=== PATIENT | female | born 1940 | race Caucasian/White ===

== ENCOUNTER → 2020-05-01 08:49 | Outpatient (BNVA) | payer MEDICARE, SELFPAY | PROVIDERS: Family Provider Physician Assistant Medical; Visit Provider Internal Medicine | DX: E04.2 Nontoxic multinodular goiter (principal); E21.0 Primary hyperparathyroidism; I10 Essential (primary) hypertension | CPT/HCPCS: 99204 ==

== ENCOUNTER 2020-05-20 06:47 | Outpatient (CLI) | payer MEDICARE, SELFPAY ==
--- NOTE | 2020-05-20 08:00 | US_ITS ---
WS: [id number] INDICATION: Ultrasound-guided thyroid FNA. Thyroid nodules. TECHNIQUE: Ultrasound-guided thyroid FNA FINDINGS: The procedure including risks benefits, locations were discussed with the patient who agree d to proceed. Using sterile technique patient was prepped and draped in usual sterile fashion. Timeou t was performed. After 1% lidocaine, using ultrasound guidance, 3 passes were made into the solid lef t thyroid nodule with active aspiration. Left thyroid nodule measures 1.7 x 0.6 x 1.3 cm Next, using ultrasound guidance 3 passes were made into the cystic left lower pole thyroid cystic les ion with coarse calcifications. 25-gauge needle was utilized with active aspiration. Cystic nodule wi th calcifications measures 1.1 x 0.5 x 0.8 cm No immediate complications. Pathology was present for s lide preparation US/US biopsy thyroid [id number] IMPRESSION: Uncomplicated ultrasound-guided left thyroid FNA of a mid and left lower pole thyroid nodule
[2020-05-20 08:14] LABS: INR 1.06 (0.8-1.2)
== END 2020-05-20 06:48 | disposition home or self-care (01) ==
LOC: US 06:52
PROVIDERS: Visit Provider Internal Medicine
DX: E04.2 Nontoxic multinodular goiter (principal)
CPT/HCPCS: 10005; 10006; 36415; 85610; 88307

== ENCOUNTER 2020-06-16 11:36 | Outpatient (CLI) | payer MEDICARE, SELFPAY ==
--- NOTE | 2020-06-16 11:43 | MM_ITS ---
WS: [id number] BILATERAL DIGITAL SCREENING MAMMOGRAPHY WITH CAD CLINICAL INFORMATION: SCREENING HISTORY: Screening mammogram. No current complaints. COMPARISON: TECHNIQUE: Bilateral CC and MLO views. FINDINGS: Scattered fibroglandular densities bilaterally. No suspicious focal mass, asymmetry, calcifications, or architectural distortion. No evidence of malignancy. MM/[place] [id number] IMPRESSION: BI-RADS: 1-Negative FOLLOW UP: 1 Year Follow-up Recommend return to annual screening mammography.
== END 2020-06-16 11:37 | disposition home or self-care (01) ==
LOC: RADSHAW 11:42
PROVIDERS: PCP Physician Assistant Medical; Visit Provider Physician Assistant Medical
DX: Z12.31 Encounter for screening mammogram for malignant neoplasm of breast (principal)
CPT/HCPCS: 77067

== ENCOUNTER → 2021-02-19 13:57 | Outpatient (BNVA) | payer MEDICARE, SELFPAY | PROVIDERS: PCP Physician Assistant Medical; Referring Provider Physician Assistant Medical; Visit Provider Orthopaedic Surgery | DX: M54.5 Low back pain (principal) | CPT/HCPCS: 72110 ==

== ENCOUNTER → 2021-03-06 10:03 | Outpatient (BNVA) | payer MEDICARE, SELFPAY | PROVIDERS: PCP Physician Assistant Medical; Referring Provider Orthopaedic Surgery; Visit Provider Anesthesiology Pain Medicine | DX: G89.29 Other chronic pain (principal); M54.5 Low back pain | CPT/HCPCS: 99205 ==

== ENCOUNTER → 2021-03-09 13:35 | Outpatient (BNVA) | payer MEDICARE, SELFPAY | PROVIDERS: PCP Physician Assistant Medical; Visit Provider Anesthesiology Pain Medicine | DX: M47.816 Spondylosis without myelopathy or radiculopathy, lumbar region (principal) | CPT/HCPCS: 64493; 64494; 64495; J3490 ==

== ENCOUNTER → 2021-03-24 09:44 | Outpatient (BNVA) | payer MEDICARE, SELFPAY | PROVIDERS: PCP Physician Assistant Medical; Visit Provider Anesthesiology Pain Medicine | DX: M54.5 Low back pain (principal) | CPT/HCPCS: 99214 ==

== ENCOUNTER → 2021-04-14 14:05 | Outpatient (BNVA) | payer MEDICARE, SELFPAY | PROVIDERS: PCP Physician Assistant Medical; Referring Provider Physician Assistant Medical; Visit Provider Internal Medicine | DX: E21.0 Primary hyperparathyroidism (principal); E04.2 Nontoxic multinodular goiter; R53.83 Other fatigue; R13.10 Dysphagia, unspecified | CPT/HCPCS: 99213; 99214 ==

== ENCOUNTER → 2021-05-20 13:59 | Outpatient (BNVA) | payer MEDICARE, SELFPAY | PROVIDERS: PCP Physician Assistant Medical; Visit Provider Orthopaedic Surgery | DX: Z01.812 Encounter for preprocedural laboratory examination (principal); Z20.822 Contact with and (suspected) exposure to COVID-19 | CPT/HCPCS: 87635 ==

== ENCOUNTER → 2021-05-21 19:57 | Day surgery (SDC) | payer MEDICARE, SELFPAY | PROVIDERS: PCP Physician Assistant Medical; Visit Provider Orthopaedic Surgery | DX: Z01.818 Encounter for other preprocedural examination (principal); I10 Essential (primary) hypertension; Z01.812 Encounter for preprocedural laboratory examination; Z20.822 Contact with and (suspected) exposure to COVID-19 | CPT/HCPCS: 93005 ==

== ENCOUNTER 2021-05-27 11:22 | Observation (INO) | payer MEDICARE, SELFPAY ==
[2021-05-20 13:10] VITALS: BMI 31.4
--- NOTE | 2021-05-20 13:14 | ECG_ITS ---
[facility] Test Date: 2021-05-20 Pat Name: Sharla Arciniega Department: Room: Gender: Female Optoelectronic Technician: : 1940 Requested By: Elaine Angela Order Number: [id number] Isidoro MD: Carl Devries M.D. Measurements Intervals [place] Rate: 54 P: MI: QRS: 65 QRSD: 108 T: 72 QT: 413 QTc: 391 Interpretive Statements SINUS BRADYCARDIA WITH 2ND DEGREE AV BLOCK, MOBITZ TYPE I (WENCKEBACH) No previous ECG available for comparison Electronically Signed On 05-21-2021 17:17:55 CDT by Carl Devries M.D. [id number]
--- NOTE | 2021-05-20 13:35 | ANES.PREANE2 ---
Pre-Anesthetic Assessment Pre-Anesthetic Assessment: Height/Weight: Height 1.63 m Weight 83.007 kg Preop Diagnosis: back Proposed Procedure: Operation Date: 05/27/21 07:00 Proposed Procedures p Posterior Lumbar Interbody Fusion L4/5 L5-S1 [id number] M43.16(Not Applicable) - Joey Anguiano DO Familial anesthetic complications: none Social: Social History: No alcohol and No tobacco Exam: Pre-Anes Outpt Exam: alert, oriented x 3, clear to auscultation bilaterally and regular rate & rhythm Airway: Cervical ROM: WNL Dentition: Full CV/HEM: CV/HEM: HTN Comments: samaria Ash on EKG - no symptoms. Conferred with Dr Devries regarding any further recommendations. Recommended having patient cut bisoprolol to 5 mg a day for 2 to 3 days before surgery to help increase heart rate while still providing some beta blockade Anesthetic Plan: ASA status: 2 Anesthesia: General Risk of > 500 ml blood loss (7ml/kg in children): No PFSH Anesthesia PFSH: Medical History COPD (chronic obstructive pulmonary disease) Hypertension Surgical History Hx of cholecystectomy Family History Mother Cancer ovarian Sister Aneurysm Social History Smoking and tobacco status: never smoked Second hand smoke exposure: No Alcohol intake: never History of recent travel: No Data Anesthesia Cardiac Studies: No Data to Display
[2021-05-27] VITALS (19 sets, daily range): BP systolic 86–166; BP diastolic 30–105; PULSE 62–103; RESP 12–29; TEMP 36.3–37.1; O2SAT 91–98; BMI 30.6
--- NOTE | 2021-05-27 | XR_ITS ---
WS: [id number] Lumbar spine, C-arm fluoroscopy, 05/27/2021 Clinical Data: L5/S1 Interbody fusion with posterolateral fusion Comparison: None. Findings: Dr. Anguiano performed a posterior lumbar fusion with interbody fusion from L4 through S1. XR/XR lumbar spine 2-3V* [id number] Impression: Posterior lumbosacral fusion with interbody fusion.
--- NOTE | 2021-05-27 07:41 | PM.HP ---
Providers/Chief Complaint Primary Care Provider: Jerrell Rich Chief Complaint: Spondylolisthesis History of Present Illness Sharla Arciniega is a 80 year old female lower back pain. She states injections to Bilateral L2, 3, 4, 5, diagnostic MBBs given by Dr. García provided her with 90 minutes of relief. She states the pain to her lower legs has improved. Onset: gradual Duration: 4 months Characteristics: sharp aching at times Severity: 5/10 Location: lumbar Radiating symptoms: lower extremities, bilat hips Aggravating factors: standing or walking long distances Alleviating factors: rest, Tylenol Neuro deficits: Patient denies numbness, tingling, weakness, incontinence of bowel/bladder, saddle anesthesia. Prior tx: medial branch block - Dr. García on 03/09/21 Associated symptoms: Denies abdominal pain, chills, fever(s), nausea or vomiting Review of Systems Narrative: General ROS: negative for weight changes, fever ENT ROS: negative for nasal congestion, drainage or bleeding, sore throat, dysphagia or ear pain Eyes: PERRL Hematological and Lymphatic ROS: negative for swollen glands or abnormal bleeding Endocrine ROS: negative for polyuria/polydpsia or new changes in weight Respiratory ROS: negative for cough, shortness of breath, or wheezing Cardiovascular ROS: negative for chest pain or dyspnea on exertion Gastrointestinal ROS: negative for reflux, abdominal pain, change in bowel habits, or black or bloody stools Musculoskeletal ROS: negative for back pain, neck pain, or joint pain or swelling except for current problem Neurological ROS: negative for TIA or stoke symptoms Skin: no rashe Medications/Allergies Home Medications Medication Instructions Recorded Confirmed Last Taken Type aspirin 325 mg tablet 81 mg PO DAILY 05/01/20 05/20/21 05/19/21 20:00 History azelastine 137 mcg (0.1 %) nasal 1 spray INTRANASAL BID PRN 05/01/20 05/20/21 05/19/21 20:00 History spray aerosol bisoprolol fumarate 10 mg tablet 10 mg PO DAILY 05/01/20 05/20/21 05/20/21 07:00 History fluticasone propionate 250 1 inh INHALATION BID 05/01/20 05/20/21 05/20/21 07:00 History mcg/actuation blister powder for inhalation glucosamine-chondroitin 250 mg-200 2 tab PO TID 05/01/20 05/20/21 05/20/21 08:00 History mg tablet spironolactone 25 mg tablet 25 mg PO DAILY 05/01/20 05/20/21 05/20/21 08:00 History Allergies Allergy/AdvReac Type Severity Reaction Status Date / Time No Known Allergies Allergy Verified 05/27/21 07:33 PFSH Acute PFSH: Medical History COPD (chronic obstructive pulmonary disease) Hypertension Surgical History Hx of cholecystectomy Family History Mother Cancer ovarian Sister Aneurysm Social History Smoking and tobacco status: never smoked Second hand smoke exposure: No Alcohol intake: never History of recent travel: No Physical Exam Narrative: EXAM NARRATIVE: CONSTITUTIONAL: The patient is a normal appearing [] in no apparent distress. GENERAL: Patient in no acute distress. CARDIAC: Regular rate and rhythm. CHEST: Normal inspiratory effort, normal respiratory rate. ABDOMEN: Soft and nontender. SKIN: Clear, warm and intact. NEURO?PSYCH: The patient is alert and oriented to person, place and time. Sensorv /SILT Motor StrengthShoulder abduction C5 5/5Wrist extension C6 5/5Elbow extension C7 5/5Hand Criminal Intelligence Specialist C8 5/5Finger abduction T15/5 Radial/ Ulnar/ Median n intact LowerSensory (SILT)Motor StrengthHin flexion L2/3Ant/inner thigh 5/5Hip adduction L2/3 5/5Knee extension L4 Lat thigh, 5/5Toe dorsiflexion L5 5/5Ankle dorsiflexion L5/ [id number] flexion S1 5/5 DTRBleeps 2+Triceps 2+Brachioradialis 2+Patellar 2+Achilles 2+ MUSCULOSKELETAL: [] UPPEREXTREMITIES: The patient had full active ROM in fingers, wrist, elbow, and shoulder. The patient demonstrated ability to fully flex/extend/abduct/adduct fingers, make ok sign, cross 2nd/3rd digits, extend 1st digit fully.. Radial pulse 2+, CR<2 seconds. LOWER EXTREMITIES: Pt has full, active ROM of toes, ankle, knee, and hip. Dorsalis pedis/posterior tibialis pulses 2+, CR<2 seconds. SPINE: Skin warm, dry, intact A&P Assessment and plan (1) Spondylolisthesis at L4-L5 level: Spondylolisthesis at L4/5 and L5/S! PLIF L4-S1 Status: Acute Attestations Medical Necessity Statement*: failed conservative tx Coding Level of Care Code Acute Metal Patternmaker for [facility] Jessicad Diagnoses Spondylolisthesis at L4-L5 level M43.16
--- NOTE | 2021-05-27 07:50 | P.ANESUD_ITS ---
Pre-Anesthetic Update Pre-Anesthetic Assessment: Date of Surgery/Procedure: 05/27/21 Preop Chana gnosis: ddd Lumbar spine with Radiculopathy Proposed Procedure: Operation Date: 05/27/21 08:40 Proposed Procedures p Posterior Lumbar Interbody Fusion L4/5 L5-S1 [id number] M43.16(Not Applicable) - Joey Anguiano, DO Any changes to Pre-Anesthetic Assessment?: No Last Intake: Intake Last Liquid Date 05/26/21 Last Liquid Time 18:30 Last Solid Date 05/26/21 Last Solid Time 18:30 Vitals: Temperature 98.7 F 05/27/21 07:34 Temperature Source Temporal Artery S can 05/27/21 07:34 Pulse Rate 62 05/27/21 07:34 Respiratory Rate 16 05/27/21 07:34 Blood Pressure 166/73 05/27/21 07:34 Blood Pressure Shalonda n 104 05/27/21 07:34 Pulse Oximetry 98 05/27/21 07:34 Oxygen Delivery Me thod 05/27/21 07:34 Exam: Pre-Anes Outpt Exam: alert, oriented x 3, clear to auscultation bilaterally and regular rate & rhythm Cardiac Studies: No Data to Display
[2021-05-27] MEDS: sodium chloride 0.9% 1,000 ML 30 ML IV (07:54)
[2021-05-27 08:04] LABS: Basophils # 0.1 10^3/uL (0.0-0.1); Basophils % 0.7 %; Eosinophils # 0.4 10^3/uL (0.0-0.8); Eosinophils % 5.3 %; Hematocrit 44.6 % (37.0-47.0); Hemoglobin 14.8 g/dL (11.5-15.3); Lymphocytes # 1.5 10^3/uL (0.8-4.8); Lymphocytes % 21.8 %; Mean Corpuscular HGB Conc 33.2 g/dL (30.0-36.0); Mean Corpuscular Hemoglobin 30.2 pg (28.0-34.0); Mean Platelet Volume 12.1 fL (7.4-10.4); Monocytes # 0.6 10^3/uL (0.2-0.9); Monocytes % 9.1 %; Neutrophils # 4.36 10^3/uL (1.8-7.7); Neutrophils % 62.8 %; Nucleated Red Blood Cells % 0 %; Platelet Count 258 10^3/cmm (130-400); Red Cell Distribution Width 12.3 % (12.1-15.1); White Blood Count 6.9 10^3/uL (4.0-10.0)
[2021-05-27] MEDS: vancomycin 1,000 MG SDV 1000 MG XX (09:18)
[2021-05-27] MEDS: heparin, porcine 1,000 unit/mL INJ 10 mL 10000 UNIT IRRIGATION (09:19)
--- NOTE | 2021-05-27 11:54 | P.OP_ITS ---
Operative Report Date of procedure: May 27, 2021 Pre-op Diagnosis: Lumbar stenosis with neurogenic claudication Post-op diagnosis: same Procedure Done: 1. L5/S1 Interbody fusion with posterolateral fusion 2. Instrumentation L4-S1 3. Allograft sponge placed at L5/S1 interbody space 4. Laminectomy L4 for purpose of decompresion with Bilateral partial facetectomies 5. Laminectomy L5 for purpose of decompresion with Bilateral partial facetectomies 5. use of autograft from same incision 6. allograft 7. Bone marrow aspirate from right iliac crest 8. use of computer navigation /stereotactic for spine Surgeon: Joey Anguiano Trim Stencil Maker: Huang Yip Trim Stencil Maker: The assistant professor of spanish, Huang Yip, PAC was needed for his expertise under the microscope. He was important and necessary throughout the procedure to complete in a safe and timely manner. He assisted with patient positioning prepping and draping tissue retraction suctioning of the operative field protection of the dural sac and tissue closure Anesthesia: General Estimated blood loss (mL): 400 Condition: stable Disposition: PACU Procedure: 1. L5/S1 Interbody fusion with posterolateral fusion 2. Instrumentation L4-S1 3. Allograft sponge placed at L5/S1 interbody space 4. Laminectomy L4 for purpose of decompresion with Bilateral partial facetectomies 5. Laminectomy L5 for purpose of decompresion with Bilateral partial fa cetectomies 5. use of autograft from same incision 6. allograft 7. Bone marrow aspirate from right iliac crest 8. use of computer navigation /stereotactic for spine Patient is brought to the operative suite. After undergoing anesthesia, the patient had neuro monitoring attached. Patient was then placed in the prone position on the Matthew table. All areas of impingement were well-padded. Alicia ent was then prepped and draped in the normal sterile fashion. Skin incision was then made over the L4 to S1 . Subperiosteal dissection was made out to the transverse processes of L4 and L5 and S1. Once the exposure was complete attention was then brought toobtaining the bone marrow aspirate. The One Block Off the Grid (1BOG) bone marrow aspirate kit was used to aspirate bone marrow aspirate from the right iliac crest through a separate incision in the fascia. This was done by using the sharp probe to open up the bone. Aspiration was performed and then the blunt probe was then used to dissect down to through the bone tunnel. An aspirating well drawn back a millimeter approximately 20 cc of bone marrow aspirate was used. Admixed with the allograft and autograft bone that will be used. Next attention was brought to placing the fiducial for the computer navigation. 2 pins were placed into the iliac crest on the right. And then the fiducial was attached to these 2 pins. The information was loaded into the computer. And then the C-arm was brought in and spun around the patient. The information from the C-arm was then sent into the computer. And computer navigation was was used for placing the pedicle screws. The technique for placing the pedicle screws was to use a drill followed by the gearshift probe linked to computer navigation. Followed by the ball probe to feel the superior inferior medial lateral hillman of the pedicles. Then placement of the screws using the computer navigation. Was done at each pedicle. Screws were placed at L4 bilaterally and L5 bilaterally and S1 bilaterally. Next attention was brought to performing the laminectomy ofL5. This was done using the high-speed bur Kerrisons and curettes. Once the lamina was removed and then attention was brought to performing a partial facetectomy on the contralateral side. This was done again using the high-speed bur curettes and Kerrisons. The ligamentum flavum was taken down bilaterally from L5 to S1. Attention was then brought to the facet on the ipsilateral side. The facet was taken down. The S1 nerve was decompressed as it passed around the S1 pedicle. The laminectomy was done for purposes of decompressing the nerve as well as placement of the cage. The L5 nerve was identified as it traversed through the L5/S1 foramen. The thecal sac was identified and retracted. The L5/S1 disc base was identified. Using a knife the disc base was opened. And then sequential amada were placed. The first shaver was a 6 and the last shaver was a size 9. Using a pituitary and down going curette the endplates were scraped and disc material was removed from the space. Once adequate decompression of the disc base was felt to be had. It was realized that the patient's bone was quite osteoporotic. I did not want to put a metal cage inside of her. At this point I decided to just place to osteoamp sponges. Osteoamp sponge was packed into the anterior aspect of the disc space. An L4 laminectomy was then performed using the high-speed drill and the Kerrison rongeurs as well as curettes and rongeur. Partial facetectomies were performed bilaterally. Using the drill as well as the Kerrison rongeurs and curettes. The L4-L5 and S1 nerve roots were completely decompressed bilaterally. Attention was then brought to attaching the rods to the screws placed in the L4, L5 and S1 bilaterally. Caps were torqued into position. Locking the construct in place. Wound was copiously irrigated and then attention was brought to decorticating the facets and transverse processes laterally. Bone that was taken down from the lamina was used along with osteoamp fibers and sponges were packed into the lateral gutters along the facet joints. This was done bilaterally. The fiducials were removed along with the pins. From the right iliac crest. Wound was then closed in a layered fashion starting with the thoracolumbar fascia. 0-vicryl was used the sub cutaneous tissue was closed with 2-0 vicryl and skin with 4-0 monocryl. Glue was then used to seal the skin and a steril dressing was applied. Patient was then placed in the supine position. The endotracheal tube was removed and patient was transferred to the PACU in stable condition.
--- NOTE | 2021-05-27 11:58 | P.PCN_ITS ---
PACU note PACU note: VSS, Good respiratory effort, report to NITROCELLULOSE MAKER Post-Anesthesia Exam: awake
--- NOTE | 2021-05-27 11:58 | PM.PACU ---
PACU note PACU note: VSS, Good respiratory effort, report to MUSEUM GUIDE Post-Anesthesia Exam: awake
[2021-05-27] MEDS: HYDROmorphone 1 mg/mL INJ 1 mL 0.5 MG IVP ×4 (12:00→12:30)
[2021-05-27] MEDS: fentaNYL 50 mcg/mL INJ 2mL IVP ×2 (12:40→12:45)
[2021-05-27 13:37] LABS: Hematocrit 39.9 % (37.0-47.0)
--- NOTE | 2021-05-27 13:41 | PM.CONSULT ---
Providers/Reason For Consult Consulting Physician/Specialty*: Crow Pizano MD, hospitalist Reason for Consult*: Medical management Attending Physician: Joey Anguiano DO Primary Care Provider: Jerrell Rich History of Present Illness History of Present Illness Sharla Arciniega is a 80 year old female who underwent L5-S1 fusion today by Dr. Anguiano secondary to lumbar stenosis with neuropathy as well as chronic back pain. From my understanding patient tolerated the procedure well without significant complication. Estimated blood loss was 400. In visiting with the patient she has some discomfort, but is hopeful she can go home by tomorrow. She denies any other significant symptoms currently. Review of Systems General: Reports: 10 or more systems reviewed and unremarkable except in HPI and below Const: Denies: fever(s) Eyes: Denies: change in vision ENMT: Denies: throat pain Card: Denies: chest pain Resp: Denies: dyspnea GI: Denies: abdominal pain : Denies: flank pain Musc: Reports: back pain Skin/Breast: Denies: rash Neuro: Denies: headache(s) Psych: Denies: anxiety Endo: Denies: polyuria Yan/Lymph: Denies: easy bruising All/Imm: Denies: urticaria Meds/Allergies Home Medications and Allergies Home Medications Medication Instructions Recorded Confirmed Last Taken Type aspirin 325 mg tablet 81 mg PO DAILY 05/01/20 05/27/21 05/23/21 History azelastine 137 mcg (0.1 %) nasal 1 spray INTRANASAL BID PRN 05/01/20 05/27/21 05/26/21 History spray aerosol bisoprolol fumarate 10 mg tablet 10 mg PO DAILY 05/01/20 05/27/21 05/27/21 History fluticasone propionate 250 1 inh INHALATION BID 05/01/20 05/27/21 05/26/21 History mcg/actuation blister powder for inhalation glucosamine-chondroitin 250 mg-200 2 tab PO TID 05/01/20 05/27/21 05/26/21 History mg tablet spironolactone 25 mg tablet 25 mg PO DAILY 05/01/20 05/27/21 05/27/21 History Allergies Allergy/AdvReac Type Severity Reaction Status Date / Time No Known Allergies Allergy Verified 05/27/21 07:33 PFSH Acute PFSH: Medical History (Updated 05/27/21 @ 13:46 by Crow Pizano MD) Chronic back pain COPD (chronic obstructive pulmonary disease) DJD (degenerative joint disease) Hypertension Multiple thyroid nodules Primary hyperparathyroidism Surgical History Hx of cholecystectomy Family History Mother Cancer ovarian Sister Aneurysm Social History Smoking and tobacco status: never smoked Second hand smoke exposure: No Alcohol intake: never History of recent travel: No Vitals/I&O/Wt Last Vital Signs Temp 97.4 F L 05/27/21 11:55 Pulse 100 05/27/21 12:35 Resp 26 H 05/27/21 12:45 BP 130/105 05/27/21 12:35 Pulse Ox 95 05/27/21 12:45 05/26/21 05/27/21 05/27/21 22:59 06:59 14:59 Intake Total 260 / 260 Output Total 1000 / 1000 Balance -740 / -740 Physical Exam Narrative: EXAM NARRATIVE: General exam is a white female, no obvious distress currently. HEENT: Atraumatic normocephalic. Pupils equally round. Oropharynx clear. Neck is supple no lymphadenopathy or thyromegaly Cardiovascular regular rate and rhythm without murmur, no S3 or S4 Lungs clear Abdomen is soft. Positive bowel sounds. No obvious organomegaly Back demonstrates dressing, drain. Dressing is clean and dry Extremities no cyanosis clubbing or edema. Cap refill brisk. Skin no rash Neuro no foot drop bilaterally. Urinary Catheter Management^: F: Cath Placed During This Visit: yes Urinary Catheter Date of Insertion: 05/27/21 Urinary Catheter Time of Insertion: 08:45 Data Other Data: Other data: EKG done on May 20 demonstrated a heart rate of 54, second-degree Mobitz 1 with normal axis. A&P Assessment and plan (1) Spondylolisthesis at L4-L5 level: Directly postoperative fusion, decompression Estimated blood loss 400 cc Repeat CBC tomorrow Status: Acute (2) Hypertension: Agree with continuing home blood pressure medications of bisoprolol and Aldactone. Secondary to EKG demonstrating bradycardia, Wenckebach approximately 1 week ago we will keep an eye on heart rate here. Currently she is not bradycardic. If bradycardia does occur consider EKG or telemetry Status: Acute Qualifiers: Hypertension type: essential hypertension Qualified Code(s): I10 - Essential (primary) hypertension (3) COPD (chronic obstructive pulmonary disease): Continue fluticasone Add DuoNeb as needed No evidence of acute exacerbation Status: Acute Additional A&P Information Full code Lovenox for DVT prophylaxis Thank you for this consultation Consult Attestations Medical Necessity Statement: As per primary Time Spent in Patient Care: Greater than 35 minutes Coding Level of Care Code Acute Leak Operator Paraffin Plant for Chg Fwd Diagnoses Spondylolisthesis at L4-L5 level M43.16 Hypertension I10 Hypertension type: essential hypertension COPD (chronic obstructive pulmonary disease) J44.9
[2021-05-27] MEDS: ketorolac 30 mg/mL INJ IVP ×2 (14:06→15:49)
[2021-05-27] MEDS: ondansetron 2 mg/ML SDV 2 mL 4 MG IVP (14:06)
[2021-05-27] MEDS: lactated ringers 1,000 ML 90 ML IV (14:06)
--- NOTE | 2021-05-27 15:39 | ANE.PACU2 ---
Inpatient post-anesthesia follow up: Airway intact: Yes Vital signs: Temperature 97.5 F Pulse Rate 82 Respiratory Rate 18 Blood Pressure 110/64 Pulse Oximetry 95 Oxygen Delivery Me thod Nasal Cannula Oxygen Flow Rate 2 Fraction of Inspir ed Oxygen Hydration adequate: Yes Nausea and vomiting: No Pain level: 1 Mental status: Baseline
[2021-05-27 17:51] LABS: Hepatitis A Antibody IgM Non-Reactive (Nonreactive); Hepatitis B Core AB, Total Non-Reactive (Nonreactive); Hepatitis B Surface AB 3.5 (11.5-1000); Hepatitis B Surface Antigen Non-Reactive (Nonreactive); Hepatitis C Virus Antibody Non-Reactive (Nonreactive)
[2021-05-27] MEDS: HYDROcodone-acetaminophen 5-325 mg Tablet PO ×2 (18:36→22:40)
[2021-05-27] MEDS: docusate sodium 100 mg Capsule PO (18:36)
[2021-05-28] VITALS: BP 98/67; PULSE 80; RESP 18; TEMP 36.6; O2SAT 94
[2021-05-28] MEDS: lactated ringers 1,000 ML 90 ML IV (00:33)
[2021-05-28 02:47] LABS: Basophils % 0.1 %; Hematocrit 30.7 % (37.0-47.0); Hemoglobin 9.9 g/dL (11.5-15.3); Lymphocytes # 0.7 10^3/uL (0.8-4.8); Lymphocytes % 5.3 %; Mean Corpuscular HGB Conc 32.2 g/dL (30.0-36.0); Mean Corpuscular Hemoglobin 30.6 pg (28.0-34.0); Mean Corpuscular Volume 94.8 fl (81-99); Mean Platelet Volume 11.9 fL (7.4-10.4); Monocytes % 7.2 %; Neutrophils # 11.79 10^3/uL (1.8-7.7); Nucleated Red Blood Cells % 0 %; Platelet Count 226 10^3/cmm (130-400); Red Blood Count 3.24 10^6/uL (4.1-5.3); Red Cell Distribution Width 12.6 % (12.1-15.1); White Blood Count 13.6 10^3/uL (4.0-10.0)
[2021-05-28 03:13] LABS: Anion Gap 12.8 (5-19); Blood Urea Nitrogen 12 mg/dL (8-23); Calcium 8.8 mg/dL (8.5-10.5); Carbon Dioxide 22 mmol/L (22-29); Chloride 107 mmol/L (98-107); Glucose 152 mg/dL (65-115); Osmolality Calculated 289 mOsm/kg (285-295); Potassium 3.8 mmol/L (3.5-5.1); Sodium 138 mmol/L (136-145)
[2021-05-28 04:00] VITALS: BP 97/88; PULSE 67; RESP 16; TEMP 36.7; O2SAT 96
[2021-05-28] MEDS: ketorolac 30 mg/mL INJ IVP (04:55)
[2021-05-28] MEDS: enoxaparin 40 mg/0.4 mL Syringe SUBCUT (05:00)
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
[2021-05-28 07:57] VITALS: BP 92/56; PULSE 80; RESP 18; TEMP 36.9; O2SAT 94
--- NOTE | 2021-05-28 08:13 | PM.DCS ---
Discharge Providers Date of Admission: 05/27/21 11:22 Date of Discharge: May 28, 2021 Attending Provider at Admission: Joey Anguiano DO Attending Provider at Discharge: Joey Anguiano DO Primary Care Provider: Jerrell Rich Diagnoses at Discharge Discharge Diagnosis (1) Status post lumbar spinal fusion: Status: Acute Reason for Visit Reason for Visit: Spondylolisthesis Hospital Course Hospital Course Patient was admitted on 05/27/2021 for a posterior spine fusion. She did well her stay was uneventful. She is discharged on 05/28/2021. Physical Exam Urinary Catheter Management^: F: Cath Placed During This Visit: yes Reason for Continuing Indwelling Catheter: Required Immobilization for Trauma or Surgery or Anesthesia Urinary Catheter Date of Insertion: 05/27/21 Urinary Catheter Time of Insertion: 08:45 Discharge Data Data Completed and Pending: Completed Studies During Hospitalization Category Date Time Status XR lumbar spine 2 -3V* [id number] Routine Exams 05/27/21 Completed Pending at discharge Category Date Time Status HIV RNA (PCR) Bong nt Stat Lab 05/27/21 13:21 Received Labs from last 24 hours 05/28/21 05/28/21 05/27/21 02:10 02:10 13:21 WBC 13.6 H RBC 3.24 L Hgb 9.9 L Hct 30.7 L MCV 94.8 MCH 30.6 MCHC 32.2 RDW 12.6 Plt Count 226 MPV 11.9 H Neut % (Auto) 87.0 Lymph % (Auto) 5.3 [place] % (Auto) 7.2 Eos % (Auto) 0.0 Baso % (Auto) 0.1 Neut # (Auto) 11.79 H Lymph # (Auto) 0.7 L [place] # (Auto) 1.0 H Eos # (Auto) 0.0 Baso # (Auto) 0.0 Nucleated RBC % (a uto) 0 Nucleated RBCs # 0.0 Sodium 138 Potassium 3.8 Chloride 107 Carbon Dioxide 22 Anion Gap 12.8 BUN 12 Creatinine 0.6 GFR Calculation Not Reportable Glucose 152 H Calculated Osmolal ity 289 Calcium 8.8 Hepatitis A IgM Ab Non-reactive Hep Bs Antigen Non-reactive Hep Bs Antibody 3.5 L Hep B Core Total A b Non-reactive Hepatitis C Antibo dy Non-reactive HIV-1 RNA copies/m L HIV-1 RNA (PCR) lo g10 Blood Type Rho(D) Type Antibody Screen 05/27/21 05/27/21 05/27/21 13:21 13:21 07:42 WBC RBC Hgb 13.0 Hct 39.9 MCV MCH MCHC RDW Plt Count MPV Neut % (Auto) Lymph % (Auto) [place] % (Auto) Eos % (Auto) Baso % (Auto) Neut # (Auto) Lymph # (Auto) [place] # (Auto) Eos # (Auto) Baso # (Auto) Nucleated RBC % (a uto) Nucleated RBCs # Sodium Potassium Chloride Carbon Dioxide Anion Gap BUN Creatinine GFR Calculation Glucose Calculated Osmolal ity Calcium Hepatitis A IgM Ab Hep Bs Antigen Hep Bs Antibody Hep B Core Total A b Hepatitis C Antibo dy HIV-1 RNA copies/m L Pending HIV-1 RNA (PCR) lo g10 Pending Blood Type O Positive Rho(D) Type Positive Antibody Screen Negative Vitals: Last Vital Signs Temp 98.4 F 05/28/21 07:57 Pulse 80 05/28/21 07:57 Resp 18 05/28/21 07:57 BP 92/56 05/28/21 07:57 Pulse Ox 94 05/28/21 07:57 Discharge Plan Discharge Patient Disposition: Home Condition: Stable Prescriptions: New hydrocodone-acetaminophen 5-325 mg tablet 1 - 2 tab PO .Q4-6H Qty: 40 RF: 0 Continued bisoprolol fumarate 10 mg tablet 10 mg PO DAILY RF: 0 spironolactone 25 mg tablet 25 mg PO DAILY RF: 0 Flovent Diskus 250 mcg/actuation blister with device 1 inh INHALATION BID RF: 0 aspirin 325 mg tablet 81 mg PO DAILY RF: 0 glucosamine-chondroitin [Osteo Bi-Flex] 250-200 mg tablet 2 tab PO TID RF: 0 azelastine 137 mcg (0.1 %) aerosol,spray 1 spray INTRANASAL BID PRN (Reason: Allergy Symptoms) RF: 0 Discharge Orders: Discharge Order (Routine); Ordered 05/28/21 Ordered By: Joey Anguiano Referrals: Joey Anguiano DO [Physician] - 06/16/21 3:45 pm Jerrell Rich [Primary Care Provider] - Discharge Diet: Advance as tolerated Discharge Activity: Limit activity as instructed Patient Instructions: Opioid Safety Activity Restrictions/Additional Instructions: [facility] The following is a list of instructions, from your provider, to follow upon your discharge to ensure you have the optimal recovery from your recent injury orsurgery. Follow-up care is a obrien part of your treatment and safety. Be sure to make and go to all appointments, and call your doctor if you are having problems. If you do not already have a follow-up appointment made, call Dr. Anguiano office in the next 1-3 days to make follow up appointment for 1 weeks at [phone]. It is also a good idea to know your test results and keep a list of the medicines you take. Medications will be prescribed for you at your provider's discretion. These medications are to be used as instructed; if they are taken more often that prescribed they will not be refilled early and in most cases will not be refilled at all. > When a refill is needed,you should contact sandra starr 2-3 business days before your prescription runs out. Medications will NOT be refilled by oracle hyperion consultant providers after hours! > Many pain medications contain Tylenol (Acetaminophen). Do not consume more than 4,000 mg of Tylenol per day in total with any combination ofmedications. > Pain medications can cause constipation. Please use an over the counter stool softener as directed, while taking pain medications. Consulty our local pharmacist with questions or recommendations on stool softeners. If constipation persists, contact our office or your primary care provider. > While under our care,you are not to receive pain medications or other controlled substances from any other provider unless our office is notified and approves. Any attempts to do so will result in refusal to prescribe any further pain medications and possible dismissal from our practice. ? Keep dressing on until f/u 1 week in clinic ? Walking is essential for the healing process after surgery. We would like you to slowly advance your walking. This should be done on relatively flat clear ground (inside or out) or can be done on a treadmill. Remember this goal does not have to happen all at once, slowly increase your distance and duration. This can be broken into more more than one walk per day as tolerated. Patients who walk as directed after surgery rarely require Physical Therapy. In the unlikely event this issue arises your provider will direct hospital staff to make the appropriate arrangements. ? No lifting over 5 pounds {a gallon of milk) or bending/twisting until further notice. Each of these activities places an unnecessary amount of stress onto the body and can impede the delicate healing process. > Instead of bending at the waist, keep your back straight and bend at the knees. > Instead of twisting your torso, keep your back straight and turn your entire body with your feet. ? You may sleep in any position which makes you comfortable. Many patients find comfort sleeping in a reclining chair. It is not abnormal to have difficulty sleeping for the first several weeks following your surgery. We recommend trying Benadry! or Tylenol PM as directed to help with your sleeping difficulties. Both medications are over the counter and available withoutprescription. ? NO SMOKING!!! Smoking dramatically increases the probability of developing postoperative wound infections. ? Common complaints after lumbar and/or thoracic spine surgery include, but are not limited to: numbness and/or tingling in the legs, pain around the incision and surrounding tissues, muscle spasms, or stiffness of the middle to low back. Contact our office if these symptoms persist or if an acute change occurs. ? No driving for the first 3-5days, and not while taking narcotics [] until seen at your follow-up appointment and cleared. There are no restrictions for riding on short trips, however if you take a longer trip, arrangements should be made to make regular stops to get out of the vehicle and stretch . ? Swelling is an unfortunate event that will take place with any surgery and is the primary source of your postoperative discomfort. While walking and regular approved activities helps control inflammation, there are additional steps you can take to minimizeswelling. > Place ice over the surgical site and surrounding tissue for twenty minutes, followed by applying a low/medium heat (heating pad) for an additional twenty minutes every 1-2 hours as needed for painrelief. > You may use of over the counter anti-inflammatory medications (Ibuprofen, Motrin, Aleve, Advil, etc) as directed on the package label. These types of medicines wm significantly reduce the amount of discomfort you experience after surgery from swelling. It should be noted that if you have and allergy to any of these medications, or a history of ulcers or kidney disease you should consult you primary care provider prior to starting these medications. Discharge Attestations Time Spent in Discharge Care*: less than 30 min Quality Metrics Clinical Quality Measures During this hospital stay, did patient experience: None Coding Level of Care Code Acute Chg FW DC note Diagnoses Status post lumbar spinal fusion Z98.1
[2021-05-28] MEDS: docusate sodium 100 mg Capsule PO (08:32)
[2021-05-28] MEDS: aspirin 325 mg Tablet 81 MG PO (08:32)
[2021-05-28] MEDS: spironolactone 25 mg Tablet PO (08:32)
[2021-05-28 09:01] VITALS: RESP 16; O2SAT 96
--- NOTE | 2021-05-28 11:00 | PC.CHAP ---
Pastoral Care Encounter/Spiritual Assessment Type of Contact [] Declined photo checker and assembler visit [] Patient/Family/Request visit [] Outpatient visit [] Follow-up visit [] Physician referral [] Code/Alert [x] Routine visit [] Staff referral [] Actively dying [] Patient sleeping [] Family support [] [] Out of room [] Palliative care [] [x] Receiving care in room [] Pre-surgical visit [] Trauma [] Long length of stay [] ICU visit [] Other: Relational/Emotional Strength [x] Patient feels connected with others/family/visitors/staff [] Distress [] Loneliness/isolation [] Abandonment Spirituality of Patient [x] Person of Naida [] Attends Christianity of their Naida [x] Believes in Prayer [] Reads Bible or Adventist materials [] There are Spiritual issues to be addressed Certified Credit Counselor Interventions [x] Prayer [x] Active listening [x] Non-anxious presence [x] Spiritual/emotional support [] Crisis/trauma care [x] Spiritual counseling [] Bereavement support [] Provided bereavement packet [] Provided Bible/devotional materials [] Provided toy/stuffed animal, coloring book to patient or family member [] Provided Communion [] Anointing/[place] [] Salvation [x] Completed spiritual assessment [] Other: Impact on Illness or Injury [] Angry [] Fearful [x] Anxious [] Often cries [] Exhaustion [] Unable to work [] Unable to attend hoahaoism [] Unable to walk/stand [] Unable to read [] Unable to drive [] Unable to eat/drink [] Unable to sleep [] Unable to be with family [] Patient intubated [] Other: Summary had joselineion will need some rehab it can be done at home has a good attitude about her recovery is going home Time spent with patient 10 mins
[2021-05-28 11:32] VITALS: BP 111/72; PULSE 94; RESP 18; TEMP 36.7; O2SAT 97
[2021-05-28] MEDS: HYDROcodone-acetaminophen 5-325 mg Tablet PO (12:45)
[2021-05-28 12:58] VITALS: BP 111/72; PULSE 94; RESP 18; TEMP 36.7; O2SAT 97
[2021-05-28 22:57] LABS: HIV RNA (CPY/ML) <1.30 NOT DETECTED (NOT DETECTED); HIV RNA LOG <20 NOT DETECTED copies/mL (NOT DETECTED)
== END 2021-05-28 12:59 | disposition home or self-care (01) ==
LOC: MEDSURG 11:22
PROVIDERS: Anesthesiology; Internal Medicine; Admitting Provider Orthopaedic Surgery; PCP Physician Assistant Medical; Visit Provider Orthopaedic Surgery
PROC: (CPT 22612; principal; 2021-05-27 08:40)
DX: M43.16 Spondylolisthesis, lumbar region (principal); I10 Essential (primary) hypertension; J44.9 Chronic obstructive pulmonary disease, unspecified; E21.0 Primary hyperparathyroidism; Z79.82 Long term (current) use of aspirin
CPT/HCPCS: 20930; 20936 ×2; 22614 ×2; 22633 ×2; 22842 ×2; 36415; 72100; 80048; 85014; 85018; 85025; 86705; 86706; 86709; 86803; 86850; 86900; 87340; 87536; 96372; 97161; C1713; C9359; G0378; J0690; J1100; J1170; J1644; J1650; J1885; J2370; J2405; J2704; J3010; J3370; J3490; J7030

== ENCOUNTER → 2021-07-14 13:36 | Outpatient (BNVA) | payer MEDICARE, SELFPAY | PROVIDERS: PCP Physician Assistant Medical; Visit Provider Orthopaedic Surgery | DX: Z98.1 Arthrodesis status (principal); Z48.89 Encounter for other specified surgical aftercare | CPT/HCPCS: 72100 ==

== ENCOUNTER 2021-08-25 11:56 | Outpatient (CLI) | payer MEDICARE, SELFPAY ==
--- NOTE | 2021-08-24 11:30 | XR_ITS ---
WS: [id number] XR lumbar spine 2-3V* [id number] REASON FOR EXAM: Z98.1 - Arthrodesis status FINDINGS: Posterior pedicle screws and rods L4-S1. Although faint there appears to be lateral bony fusion mass on the left L4-L5. The position and alignment of the surgical appliances in the lumbar spine do not appear to have alejandro ged, compared to 07/15/2021, considering the difference in projection of the lower lumbar spine betwe en the 2 sets of images. No new findings. XR/XR lumbar spine 2-3V* [id number] IMPRESSION: Stable postoperative lumbar spine.
== END 2021-08-25 11:57 | disposition home or self-care (01) ==
PROVIDERS: PCP Physician Assistant Medical; Visit Provider Orthopaedic Surgery
DX: Z98.1 Arthrodesis status (principal)
CPT/HCPCS: 72100

== ENCOUNTER → 2021-11-24 10:38 | Outpatient (BNVA) | payer MEDICARE, SELFPAY | PROVIDERS: PCP Physician Assistant Medical; Visit Provider Orthopaedic Surgery | DX: Z98.890 Other specified postprocedural states (principal); Z47.89 Encounter for other orthopedic aftercare; Z98.1 Arthrodesis status | CPT/HCPCS: 72100; 99213 ==

== ENCOUNTER 2021-12-04 12:54 | Outpatient (CLI) | payer MEDICARE, SELFPAY ==
--- NOTE | 2021-12-04 13:00 | MM_ITS ---
WS: [id number] Bilateral diagnostic 3D tomosynthesis digital mammogram, 12/04/2021 Clinical Data: BREAST PAIN Comparison: 06/16/2020, 01/09/2019, 11/01/2017, 03/04/2016, 05/01/2013, 06/01/2011. Findings: The breast parenchymal pattern shows fibroglandular tissue. No spiculated masses or clustered calcifi cations are seen. There are no secondary signs of carcinoma. MM/[place] [id number] Impression: 1. Negative bilateral mammograms unchanged. 2. Recommend bilateral breast ultrasound of the [place]. BIRADS: 1-Negative FOLLOW UP: 1 Year Follow-up The CAD weight yardage checker was used.
--- NOTE | 2021-12-04 13:38 | US_ITS ---
WS: [id number] Bilateral breast ultrasound, 12/04/2021 Clinical Data: BREAST PAIN Comparison: None. Findings: Bilateral areolar ultrasound revealed only normal breast tissue. There were no cysts or masses. US/US breast BI limited* [id number] Impression: 1. Negative bilateral breast ultrasound of the areolar tissue. 2. Recommend annual screening mammograms. BIRADS: 1-Negative FOLLOW UP: 1 Year Follow-up
== END 2021-12-04 12:55 | disposition home or self-care (01) ==
LOC: RAD 12:56
PROVIDERS: PCP Physician Assistant Medical; Visit Provider Registered Nurse
DX: N64.4 Mastodynia (principal)
CPT/HCPCS: 76642; 77062

== ENCOUNTER 2021-12-24 15:39 | Outpatient (CLI) | payer MEDICARE, SELFPAY | END 2021-12-24 15:40 | disposition home or self-care (01) | PROVIDERS: PCP Physician Assistant Medical; Visit Provider Registered Nurse | DX: Z98.1 Arthrodesis status (principal); M54.9 Dorsalgia, unspecified | CPT/HCPCS: 99213; 99214 ==

== ENCOUNTER 2022-01-14 10:58 | Outpatient (CLI) | payer MEDICARE, SELFPAY ==
--- NOTE | 2022-01-14 11:45 | MR_ITS ---
WS: [id number] MRI LUMBAR SPINE NONCONTRAST TECHNIQUE: Sagittal T1, T2 and STIR imaging. Axial T1 and T2 imaging. CLINICAL INFORMATION: post op COMPARISON: MRI January 23, 2021 FINDINGS: Exaggeration normal lumbar lordosis in the lower lumbar spine. Postoperative changes L4-S1 pedicle sc rew fixation is new from previous. Associated laminectomy defects. No high-grade central canal stenos is. Central canal stenosis is improved compared to previous. Slight anterolisthesis L4 on L5 and grad e 1 anterolisthesis L5 on S1. L1-L2: Mild annular bulging. Spinal canal and foramen are patent. Mild facet arthropathy. L2-L3: Mild annular bulging with osteophytic ridging. Narrowing of the LEFT subarticular recess. Impi ngement traversing LEFT L3 nerve root. Moderate facet arthropathy. Moderate LEFT foraminal narrowing impinges the exiting LEFT L2 nerve root. This appears stable compared to previous. L3-L4: Mild annular bulging. Narrowing of the subarticular recess bilaterally. Mild RIGHT foraminal n arrowing. L4-L5: Slight anterolisthesis L4 on L5. Postoperative changes are new from previous. Spinal canal is patent. Mild RIGHT foraminal narrowing. LEFT foramen is patent. L5-S1: Grade 1 anterolisthesis. Pedicle screw fixation is new from previous. Spinal canal and foramen are patent. Laminectomy defects. Visualized pelvic bony structures: Fibroid uterus Paravertebral soft tissues: Normal. MR/MR lumbar spine wo con* [id number] IMPRESSION: 1. Pedicle screw fixation L4-S1 is new from previous. No high-grade central ca nal stenosis. Central canal stenosis has improved with decompressive laminectom y defects. 2. Stable slight anterolisthesis L4 on L5 and grade 1 anterolisthesis L5 on S1 . 3. Impingement on the LEFT subarticular recess L2-L3 and exiting LEFT L2 nerve root with moderate LEFT foraminal narrowing. This is unchanged from previous. 4. Mild RIGHT L3-L4 and RIGHT L4-L5 foraminal narrowing.
== END 2022-01-14 10:59 | disposition home or self-care (01) ==
LOC: RAD 10:59
PROVIDERS: PCP Physician Assistant Medical; Visit Provider Orthopaedic Surgery
DX: Z98.1 Arthrodesis status (principal)
CPT/HCPCS: 72148

== ENCOUNTER → 2022-01-26 10:12 | Outpatient (BNVA) | payer MEDICARE, SELFPAY | PROVIDERS: Visit Provider Physician Assistant | DX: M51.37 Other intervertebral disc degeneration, lumbosacral region (principal); M51.26 Other intervertebral disc displacement, lumbar region; Z98.1 Arthrodesis status | CPT/HCPCS: 99213 ==

== ENCOUNTER 2022-02-03 14:34 | Outpatient (CLI) | payer MEDICARE, SELFPAY | END 2022-02-03 14:35 | disposition home or self-care (01) | LOC: HCSOACUTE 02-13 10:51 → RAD 02-17 09:32 | PROVIDERS: PCP Registered Nurse; Visit Provider Internal Medicine Cardiovascular Disease | DX: R07.89 Other chest pain (principal); R00.1 Bradycardia, unspecified; M51.37 Other intervertebral disc degeneration, lumbosacral region | CPT/HCPCS: 93005; 99204 ==

== ENCOUNTER 2022-03-23 06:40 | Outpatient (CLI) | payer MEDICARE, SELFPAY ==
--- NOTE | 2022-03-23 | ECG_ITS ---
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 Interpretive Statements NAME OF STUDY: LEXISCAN SESTAMIBI STRESS TEST INDICATION: [CP/CATRACHITA/TACHY; Atypical Chest Pain; CP/CATRACHITA/TACHY; Atypical Chest Pain, ] Procedure: At the baseline, the blood pressure was 120/65 mmHg with a heart rate of 73 bpm. The electrocardiogram showed normal sinus rhythm, normal axis with normal ST and T's. The Lexiscan was infused over a period of 20 seconds. A total of 0.4 mg of Lexiscan was infused. The stress phase was continued for a total of 5 minutes. Heart rate was at the end of stress phase was 82 bpm and a blood pressure of 123/67 mmHg. The EKG at the peak infusion revealed since normal sinus rhythm with no significant ST-T wave changes. Sestamibi was injected 20 seconds after the Lexiscan infusion. Blood pressure at the end of recovery phase was 120/67 mmHg with a heart rate of 82 bpm. Conclusion: 1. Normal EKG response to Lexiscan infusion 2. No Lexiscan induced chest pain or cardiac arrhythmia. 3. Normal blood pressure and heart rate response. 4. Sestamibi/sestamibi perfusion scan pending; see separate report. Electronically Signed On 04-11-2022 21:19:51 CDT by Carl Devries M.D. [id number]
--- NOTE | 2022-03-23 06:48 | NMCV_ITS ---
NM pam perf SPECT r/s* [id number] Sharla Arciniega Age: 81 Gender: F : 1940 Exam Date: 03/23/2022 07:41 Ordering Phys: Laura Avilez MD ([email or web address]) Technologist: JULIAN Ayala Exam Location: [facility] Indications: CHEST PAIN STRESS TEST Please see separate stress test report in [facility] for full findings IMAGE PROTOCOL Rest/Stress 1 Lexiscan Day Radiopharmaceutical Dose (mCi) Administration Site Administered by Rest: Tc-99m 10.6 IV JULIAN Overton Sestamibi Stress:Tc-99m 32.5 IV JULIAN Overton Sestamibi Rest: 23-Mar-2022 60 Discovery 630 Stress: 23-Mar-2022 30 Discovery 630 0.4mg Lexiscan. Images obtained in supine and prone position. SPECT RESULTS Technical Quality: Excellent Raw Data Analysis: Normal Image Corrections: No attenuation or motion correction applied Summed Stress Score: 2 Summed Rest Score: 2 Summed Difference Score: 1 PERFUSION FINDINGS There is a small in size, partially reversible perfusion defect in the apical lateral wall. This is consistent with small sized prior infarct with tyrese- infarct ischemia in left circumflex artery territory FUNCTIONAL RESULTS (calculated via Gated SPECT) Stress Image LV EF (%): 84 Stress EDV (mL):68 TID: 0.84 Stress ESV (mL):11 FUNCTIONAL FINDINGS: There is normal left ventricular systolic function. IMPRESSIONS 1. 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 2. LV systolic function is normal Carl Devries MD (Electronically Signed) Final Date: 23 March 2022 10:43 S
[2022-03-23 07:01] VITALS: BMI 30.2
[2022-03-23] MEDS: regadenoson 0.4 Mg/5 ml Syringe IVP (08:17)
[2022-03-23 08:40] VITALS: BP 120/67; PULSE 86
== END 2022-03-23 06:41 | disposition home or self-care (01) ==
LOC: CDL 06:41
PROVIDERS: PCP Registered Nurse; Visit Provider Internal Medicine Cardiovascular Disease
DX: R07.9 Chest pain, unspecified (principal); R06.02 Shortness of breath
CPT/HCPCS: 76830; 78452; 93017; A9500; J2785

== ENCOUNTER → 2022-03-25 10:37 | Outpatient (BNVA) | payer MEDICARE, SELFPAY | PROVIDERS: PCP Registered Nurse; Visit Provider Nurse Practitioner Family | DX: I10 Essential (primary) hypertension (principal) | CPT/HCPCS: 99213 ==

== ENCOUNTER 2022-03-31 14:58 | Observation (INO) | payer MEDICARE, SELFPAY ==
--- NOTE | 2022-03-26 11:29 | ECG_ITS ---
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 Measurements Intervals Gardner Rate: 48 P: 59 CO: 202 QRS: 5 QRSD: 97 T: 23 QT: 421 QTc: 377 Interpretive Statements SINUS BRADYCARDIA WITH MARKED SINUS ARRHYTHMIA LOW QRS VOLTAGE IN PRECORDIAL LEADS [QRS DEFLECTION < 1.0 mV IN CHEST LEADS] POSSIBLE ANTERIOR MYOCARDIAL INFARCTION , PROBABLY OLD [30 ms Q WAVE IN V3/V4, OR R < 0.2 mV IN V4] Compared to ECG 05/20/2021 13:21:02 Low QRS voltage now present Myocardial infarct finding now present Electronically Signed On 03-26-2022 14:38:41 CDT by Carl Devries M.D. [id number]
[2022-03-26 11:31] VITALS: BMI 31.6
[2022-03-26 12:01] LABS: Basophils % 0.4 %; Eosinophils # 0.4 10^3/uL (0.0-0.8); Hematocrit 46.4 % (37.0-47.0); Hemoglobin 15.1 g/dL (11.5-15.3); Lymphocytes # 1.6 10^3/uL (0.8-4.8); Lymphocytes % 22.1 %; Mean Corpuscular HGB Conc 32.5 g/dL (30.0-36.0); Mean Corpuscular Hemoglobin 30.3 pg (28.0-34.0); Mean Platelet Volume 11.9 fL (7.4-10.4); Monocytes # 0.7 10^3/uL (0.2-0.9); Monocytes % 9.8 %; Neutrophils % 62.4 %; Nucleated Red Blood Cells % 0 %; Platelet Count 256 10^3/cmm (130-400); Red Blood Count 4.99 10^6/uL (4.1-5.3); Red Cell Distribution Width 13.5 % (12.1-15.1); White Blood Count 7.2 10^3/uL (4.0-10.0)
[2022-03-26 12:22] LABS: Anion Gap 15.2 (5-19); Blood Urea Nitrogen 14 mg/dL (8-23); Calcium 10.2 mg/dL (8.5-10.5); Carbon Dioxide 23 mmol/L (22-29); Chloride 102 mmol/L (98-107); Glucose 91 mg/dL (65-115); Osmolality Calculated 282 mOsm/kg (285-295); Potassium 4.2 mmol/L (3.5-5.1); Sodium 136 mmol/L (136-145)
--- NOTE | 2022-03-26 16:14 | ANES.PREANE2 ---
Pre-Anesthetic Assessment Height/Weight: Height 1.63 m Weight 83.461 kg Preop Diagnosis: Lumbar stenosis with neurogenic claudication Operation Date: 03/31/22 07:00 Proposed Procedures p Total vaginal hysterectomy, bilateral salpingo-oophorectomy 84201, Anterior colporrhaphy 19076, Single incision sling 37938, N81.2,R10.2,N81.2(Not Applicable) - Vinod Cali MD s Salpingo-Oophorectomy (Vaginal)(Bilateral) - Vinod Cali MD s Anterior Repair Anterior Colporrhaphy(Not Applicable) - Vinod Cali MD s Sling Single Incision Sling(Not Applicable) - Vinod Cali MD Familial anesthetic complications: none Was Beta Jesica taken within 24 hours: Yes Was Clonidine taken within 24 hours: N/A Social No alcohol and No tobacco Exam alert, oriented x 3 and clear to auscultation bilaterally jarrod Airway Submandibular: within normal limits Cervical ROM: within normal limits Mallampati: Class III Dentition: caps Pulmonary Chronic Obstructive Pulmonary Disease CV/HEM Hypertension Metabolic Hyperlipidemia and Morbid Obesity [facility] Lower Back Pain and Osteoarthritis/DJD Anesthetic Plan ASA status: 3 Anesthesia: General Medications/Allergies Home Medications Medication Instructions Recorded Confirmed Last Taken Type azelastine 137 mcg (0.1 %) nasal 1 spray intranasal BID PRN Allergy 05/01/20 03/26/22 05/26/21 History spray aerosol Symptoms fluticasone propionate 250 1 inh inhalation DAILY 05/01/20 03/26/22 05/26/21 History mcg/actuation blister powder for inhalation (Flovent Diskus) glucosamine-chondroitin 250 mg-200 1 tab PO DAILY 05/01/20 03/26/22 05/26/21 History mg tablet (Osteo Bi-Flex) spironolactone 25 mg tablet 25 mg PO DAILY 05/01/20 03/26/22 05/27/21 History bisoprolol fumarate 10 mg tablet 10 mg PO DAILY 01/15/22 03/26/22 Unknown History cholecalciferol (vitamin D3) 1,200 mg PO DAILY 01/15/22 03/26/22 Unknown History naproxen sodium 220 mg tablet 220 mg PO BID PRN Pain 02/03/22 03/26/22 Unknown History (Flanax (naproxen)) tizanidine 4 mg tablet 4 mg PO TID PRN muscle spasticity 02/03/22 03/26/22 Unknown History tramadol 50 mg tablet 75 mg PO BID PRN pain 02/03/22 03/26/22 Unknown History aspirin 81 mg tablet,delayed 81 mg PO DAILY 02/26/22 03/26/22 03/25/22 History release (Moises Low Dose Aspirin) nitroglycerin 0.4 mg sublingual 0.4 mg sublingual Q5M PRN chest 03/23/22 03/26/22 Unknown Rx tablet (Nitrostat) pain #25 tabs pravastatin 10 mg tablet 10 mg PO DAILY #90 tabs 03/23/22 03/26/22 Unknown Rx Allergies Allergy/AdvReac Type Severity Reaction Status Date / Time fexofenadine Allergy Unknown Unknown Verified 03/26/22 11:23 montelukast Allergy Unknown Unknown Verified 03/26/22 11:23 [facility] Anesthesia Medical History Chronic back pain COPD (chronic obstructive pulmonary disease) DJD (degenerative joint disease) Hypertension Multiple thyroid nodules Primary hyperparathyroidism Surgical History Hx of cholecystectomy Family History Mother Diabetes Cancer Sister Aneurysm Family/Other Breast cancer maternal aunt, age onset unknown Denies family history of Colon cancer Ovarian cancer CAD (coronary artery disease) Clotting disorder Dementia Heart disease Hyperlipidemia Chronic kidney disease (CKD) Suicide Anesthesia complication Bleeding disorder Lung disease Hypertension Uterine cancer Thyroid condition Stroke Social History Smoking and tobacco status: never smoked Second hand smoke exposure: No Alcohol intake: never History of recent travel: No Data Anesthesia : 03/26/22 11:50 03/26/22 11:50 Short CBC 03/26/22 Range/Units 11:50 WBC 7.2 (4.0-10.0) 10^3/uL Hgb 15.1 (11.5-15.3) g/dL Hct 46.4 (37.0-47.0) % MCV 93.0 (81-99) fl Plt Count 256 (130-400) 10^3/cmm Neut % (Auto) 62.4 % Neut # (Auto) 4.50 (1.8-7.7) 10^3/uL BMP 03/26/22 11:50 Sodium 136 Potassium 4.2 Chloride 102 Carbon Dioxide 23 BUN 14 Creatinine 0.9 Glucose 91 Calcium 10.2 Cardiac Studies: Sestamibi Stress Test (Cardiology) 03/23/22
[2022-03-31] VITALS (24 sets, daily range): BP systolic 109–147; BP diastolic 51–78; PULSE 50–76; RESP 16–20; TEMP 36.3–36.8; O2SAT 93–99
--- NOTE | 2022-03-31 08:23 | ANES.PAUD2 ---
Pre-Anesthetic Update Pre-Anesthetic Assessment: Date of Surgery/Procedure: 03/31/22 Preop Diagnosis: Lumbar stenosis with neurogenic claudication Proposed Procedure: Operation Date: 03/31/22 10:20 Proposed Procedures p Total vaginal hysterectomy, bilateral salpingo-oophorectomy 89160, Anterior colporrhaphy 82509, Single incision sling 49108, N81.2,R10.2,N81.2(Not Applicable) - Vinod Cali MD s Salpingo-Oophorectomy (Vaginal)(Bilateral) - Vinod Cali MD s Anterior Repair Anterior Colporrhaphy(Not Applicable) - Vinod Cali MD s Sling Single Incision Sling(Not Applicable) - Vinod Cali MD Any changes to Pre-Anesthetic Assessment?: No Exam: Pre-Anes Outpt Exam: alert, oriented x 3, clear to auscultation bilaterally and regular rate & rhythm Additional Exam Findings (including area of procedure): From Cardiology appointment 03/25/22 with Autumn Abbasi Assessment & Plan Assessment & Plan (1) Hypertension: ?Qualifiers: ?Hypertension type:?essential hypertension? Qualified Code(s):?I10 - Essential (primary) hypertension ?Assessment & Plan: I discussed with her the results of the stress test, and her symptoms.? I discussed her options of medical management versus coronary angiogram, given that she is having surgery next week.? Given her lack of symptoms and the small sized perfusion abnormality, she elects to do medical management at this point.? She has been placed on pravastatin 10 mg daily and given sublingual nitroglycerin if needed.? She does not want to continue to follow-up with cardiology but elects to monitor her health via her primary care provider and request an appointment with cardiology later if needed. ?Status:?Acute ?Code(s): I10 - Essential (primary) hypertension Nuc Med Study 03/23/22 PERFUSION FINDINGS ?There is a small in size, partially reversible perfusion defect in the apical ?lateral wall.? 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 ? (calculated via Gated SPECT) ? Stress Image LV EF (%):? ? 84 ? Stress EDV (mL):68 ? TID:? 0.84 ? Stress ESV (mL):11 ?FUNCTIONAL FINDINGS: ?There is normal left ventricular systolic function. ?IMPRESSIONS ?1.? Abnormal myocardial perfusion imaging with small sized prior infarct and ?tyrese-infarct ischemia in left circumflex artery territory. ?2.? LV systolic function is normal Cardiac Studies: Sestamibi Stress Test (Cardiology) 03/23/22
[2022-03-31] MEDS: sodium chloride 0.9% 1,000 ML 30 ML IV (09:07)
[2022-03-31] MEDS: enoxaparin 30 mg/0.3 mL Syringe SUBCUT (09:08)
[2022-03-31] MEDS: scopolamine 1.5 Patch 1 PATCH TRANSDERMA (09:09)
[2022-03-31 09:15] LABS: Basophils % 0.5 %; Eosinophils # 0.3 10^3/uL (0.0-0.8); Eosinophils % 4.1 %; Hematocrit 46.5 % (37.0-47.0); Hemoglobin 15.2 g/dL (11.5-15.3); Lymphocytes # 1.6 10^3/uL (0.8-4.8); Lymphocytes % 19.4 %; Mean Corpuscular HGB Conc 32.7 g/dL (30.0-36.0); Mean Corpuscular Hemoglobin 30.3 pg (28.0-34.0); Mean Corpuscular Volume 92.6 fl (81-99); Mean Platelet Volume 12.3 fL (7.4-10.4); Monocytes # 0.7 10^3/uL (0.2-0.9); Monocytes % 9.2 %; Neutrophils # 5.35 10^3/uL (1.8-7.7); Neutrophils % 66.7 %; Nucleated Red Blood Cells % 0 %; Platelet Count 224 10^3/cmm (130-400); Red Blood Count 5.02 10^6/uL (4.1-5.3); Red Cell Distribution Width 13.5 % (12.1-15.1)
[2022-03-31 09:44] LABS: Alanine Aminotransferase 22 U/L (0-33); Albumin Level 4.1 g/dL (3.5-5.2); Alkaline Phosphatase 108 U/L (35-105); Anion Gap 16.1 (5-19); Aspartate Amino Transferase 25 U/L (0-32); Blood Urea Nitrogen 14 mg/dL (8-23); Calcium 10.1 mg/dL (8.5-10.5); Carbon Dioxide 23 mmol/L (22-29); Chloride 105 mmol/L (98-107); Globulin 3.1 g/dL (1.3-4.6); Glucose 122 mg/dL (65-115); Osmolality Calculated 292 mOsm/kg (285-295); Potassium 4.1 mmol/L (3.5-5.1); Sodium 140 mmol/L (136-145); Total Bilirubin 0.9 mg/dL (0.15-1.2); Total Protein 7.2 g/dL (6.6-8.7)
--- NOTE | 2022-03-31 11:07 | W.PM.OPSUD ---
Surgery/Procedure H&P Update DATE OF PROCEDURE: March 31, 2022 DATE H&P PERFORMED: 02/26/22 H&P UPDATE INFORMATION: I have reviewed H&P completed within last 30 days, I have examined patient prior to procedure and No changes to prior documentation PREOP DIAGNOSIS: Uterine prolapse, pelvic pain, uterine fibroid PLANNED PROCEDURE: Operation Date: 03/31/22 10:20 Proposed Procedures p Total vaginal hysterectomy, bilateral salpingo-oophorectomy 14606, Anterior colporrhaphy 74747, Single incision sling 75957, N81.2,R10.2,N81.2(Not Applicable) - Vinod Cali MD s Salpingo-Oophorectomy (Vaginal)(Bilateral) - Vinod Cali MD s Anterior Repair Anterior Colporrhaphy(Not Applicable) - Vinod Cali MD s Sling Single Incision Sling(Not Applicable) - Vinod Cali MD
[2022-03-31] MEDS: ceFOXitin 2,000 MG in sodium chloride 0.9% (plus) 50 ML 100 MG IV (11:10)
[2022-03-31] MEDS: estrogens Conjugated Cream 30 gm 1 APPLIC VAGINAL (12:22)
--- NOTE | 2022-03-31 13:30 | PM.OP ---
Operative Report Date of procedure: March 31, 2022 Pre-op diagnosis: Preop Diagnosis Uterine prolapse, pelvic pain, uterine fibroid Post-op diagnosis: Same as above Procedure done: Total vaginal hysterectomy with left oophorectomy. Anterior colporrhaphy. Single incision mid urethral sling. Posterior colporrhaphy. Cystoscopy. Specimens removed/disposition: Uterus and left ovary Surgeon: Vinod Cali MD Estimated blood loss (mL): 50 IV fluids (mL): 1,000 Urine output (mL): 200 Complications: None Procedure: After informed consent and risks, benefits, indications and alternatives reviewed with the patient was taken to the operating room. The patient was placed in dorsal lithotomy position prepped, and draped in the usual sterile fashion. The pre-procedure timeout verifying the correct patient, procedure, site and side, could not requirements was performed and acknowledge by the OR team. A Lr catheter was placed. A Bookwalter vaginal retractor was placed into the vagina in usual manner visualize the cervix. Cervix was grasped with a single tooth tenaculum and circumferentially infiltrated with 2% lidocaine with epinephrine. Then cervix was circumferentially incised with bovie and the bladder was dissected off the pubovesical cervical fascia anteriorly with a sponge stick and Metzenbaum scissors. The anterior peritoneal reflection was identified and the anterior cul-de-sac was entered sharply with Metzenbaum scissors. The same procedure was performed posteriorly and a posterior colpotomy was made through the posterior cul-de-sac space without difficulty and the posterior blade of the Bookwalter vaginal retractor was advanced posteriorly into the cul-de-sac. At this time, the left and right uterosacral ligaments were isolated and ligated with 0 Vicryl. The Enseal device was placed over the uterosacral ligaments on either side and was then used in a serial fashion up through the cardinal ligaments bilaterally cross-clamped, cut, and sealed with the Enseal device. Finally, the uterine arteries were cross-clamped, cut, sealed and ligated with the Enseal device. Hemostasis was assured. The broad ligaments were then serially clamped, sealed and cut with the Enseal device on both sides. Excellent hemostasis was visualized. Both cornua were clamped, sealed and cut with the Enseal device. Then the pedicles were then suture ligated with excellent hemostasis. The uterus was excised and submitted for pathologic evaluation. No other abnormalities were noted in the pelvic cavity. Then the left side Infundibular ligament was identified. The ureter was confirmed along the pelvic side wall and peristalsis was noted. The Enseal device was then used to clamp, sealed and transcepted at middistance, again being sure to be clear of the ureter and the ovary was removed. The right ovary could not be identified and could not be removed.. Good hemostasis was assure on both sides. The peritoneum was then closed in a pursestring fashion with 0 Vicryl suture. The vaginal cuff angles were closed with [id number] #0 Vicryl suture on both sides and transfixed with the ipsilateral cardinal and uterosacral ligaments. The remainder of the vaginal cuff was closed with #0 Vicryl in a running locked fashion. Then proceeded to perform the single incision mid urethral sling. A vertical midline incision was made beneath the midurethra, nearly 1.5 cm length. Careful submucosal dissection was performed bilaterally up to the interior portion of the inferior pubic ramus. The insertion of adductor longus tendon on the patient?s pubic ramus was identified as reference land bowen. Palpated the notch along the internal edge of ischiopubic ramus where the adductor longus tendon and the inferior pubic ramus meet. The Altis single incision sling (SIS) was selected. Then the needle of the SIS inserted aiming at the location of this notch. One of the integrated self-fixating tips place onto the needle by sliding it over the end of the needle. The needle/sling assembly was inserted toward the location of identified reference notch making sure that the flat of the handle is perpendicular to the desired path. The needle was tracked along the posterior surface of the ischiopubic ramus until the midline bowen on the mesh is approximately at the midline position under the urethra. The needle was removed and the same was repeated on the contralateral side until the appropriate sling tension under the urethra was achieved ensuring that the mesh lays flat. The needle was removed and vaginal incision was closed in a running interlocking fashion with 2-0 Vicryl. An anterior colporrhaphy was then performed. The medial portion of the anterior vaginal wall was grasped with two Allis clamps and the mucosa was infiltrated with the previous vasopressin solution. The Metzenbaum scissors were used to dissect and undermine a plane medially up to the point of reflexion anteriorly of the bladder. The vaginal mucosa was incised medially. This tissue was then grasped with Shubuta clamps and dissected away with a combination of sharp and blunt dissection on both sides. A suture of 2-0 vicryl was then used to connect the lateral pubovesical connective tissue on either side together in a series of bites that was repeated in two layers. The excess vaginal mucosa was trimmed and the incision repaired with a locked suture of 0 vicryl. Then a dilute lidocaine 2% with epinephrine solution was infiltrated under the posterior vaginal mucosa midline and into the perineal body. An inverted triangle/herbert of skin / transverse incision was cut in the perineum. The posterior vaginal wall was opened vertically and midline up to the apex of the rectocele. The cut edges were held and splayed laterally with a series of Allis. The open vaginal mucosa was then dissected laterally with a combination of sharp and blunt dissection, exposing the perirectal fascia. The perirectal fascia was then reapproximated with interrupted #2-0 Vicryl sutures to draw the lateral folds together and tuck the rectocele back. Deep interrupted sutures of #0 Vicryl were used to reapproximate the fibers of the levator ani muscles. The excess vaginal mucosa was trimmed. The posterior vaginal wall was closed with a running locked #0 Vicryl to the hymenal tags. The superficial perineal muscles were closed with running unlocked #0 Vicryl and the perineal skin was closed with running subcuticular #2-0 Vicryl. Then the Lr catheter was removed and cystoscope was inserted. The bladder was filled with sterile water. Complete evaluation of the bladder mucosa was performed noting no lacerations, dimpling, tears, bleeding of the mucosa or muscular layers. Both ureteral orifices were identified. Prompt excretion of urine from both ureteral orifices was noted. Cystoscope was withdrawn. Lr catheter was then placed yielding clear quirino urine. A vaginal packing with Premarin cream was placed and the patient was taken out of dorsal lithotomy position and awakened from the general anesthesia. The patient tolerated the procedure well and was taken to the PACU recovery room in a stable condition. Sponge, lap, needle and instruments counts were correct x3.
[2022-03-31] MEDS: fentaNYL 50 mcg/mL INJ 2mL IVP ×2 (14:01→14:10)
[2022-03-31] MEDS: HYDROmorphone 1 mg/mL INJ 1 mL 0.5 MG IVP (14:19)
[2022-03-31] MEDS: ketorolac 30 mg/mL INJ IVP ×2 (15:38→21:28)
[2022-03-31] MEDS: dextrose 5%-lactated ringers 1,000 ML 125 ML IV (15:40)
--- NOTE | 2022-03-31 17:07 | ANE.PACU2 ---
Inpatient post-anesthesia follow up: Airway intact: Yes Vital signs: Temperature 98.2 F Pulse Rate 62 Respiratory Rate 18 Blood Pressure 123/67 Pulse Oximetry 98 Oxygen Delivery Me thod Room Air Oxygen Flow Rate 3 Fraction of Inspir ed Oxygen Hydration adequate: Yes Nausea and vomiting: No Pain level: 4 Mental status: Baseline
[2022-03-31] MEDS: HYDROcodone-acetaminophen 5-325 mg Tablet PO (19:42)
[2022-04-01 04:45] VITALS: BP 103/55; PULSE 62; RESP 15; O2SAT 95
[2022-04-01 05:39] LABS: Hematocrit 37.2 % (37.0-47.0); Hemoglobin 12.1 g/dL (11.5-15.3); Mean Corpuscular HGB Conc 32.5 g/dL (30.0-36.0); Mean Corpuscular Hemoglobin 30.1 pg (28.0-34.0); Mean Corpuscular Volume 92.5 fl (81-99); Mean Platelet Volume 12.9 fL (7.4-10.4); Platelet Count 194 10^3/cmm (130-400); Red Blood Count 4.02 10^6/uL (4.1-5.3); Red Cell Distribution Width 13.4 % (12.1-15.1); White Blood Count 11.1 10^3/uL (4.0-10.0)
[2022-04-01] MEDS: HYDROcodone-acetaminophen 5-325 mg Tablet PO ×2 (08:13→16:55)
[2022-04-01] MEDS: cholecalciferol (vitamin D3) 1,000 unit Tablet 1000 UNIT PO (08:14)
[2022-04-01] MEDS: docusate sodium 100 mg Capsule PO ×2 (08:14→16:55)
[2022-04-01] MEDS: aspirin 81 mg EC Tablet PO (08:15)
[2022-04-01] MEDS: spironolactone 25 mg Tablet PO (08:15)
[2022-04-01] MEDS: atorvastatin 40 mg Tablet 20 MG PO (08:15)
[2022-04-01] MEDS: sodium chloride 0.9% 500 ML IV (09:32)
--- NOTE | 2022-04-01 10:14 | PM.OBGYDC ---
Discharge Providers IRRIGATION TECHNICIAN Date of Admission: 03/31/22 14:58 Date of Discharge: 04/01/22 Attending Provider at Admission: Vinod Cali MD Attending Provider at Discharge: Vinod Cali MD Primary IRRIGATION TECHNICIAN: Vinod Cali MD Primary Care Provider: Hali Horne [facility] Course Hospital Course Mrs. Cano 31-year-old female and she was admitted to the hospital for planned Total vaginal hysterectomy with bilateral salpingo-oophorectomy, Anterior colporrhaphy augmented with allograft, Single incision mid urethral sling and Posterior colporrhaphy. The procedures were performed without complications. Overnight observation was uneventful. Tolerating diet well. Adequate urine output. Ambulating without difficulty. She is afebrile and hemodynamically stable postoperatively day 1. The Patient was counseled regarding postop precautions no heavy lifting greater than 10 pounds and pelvic rest for 6 weeks (no sex, no tampons, no vaginal douches). Return to the emergency room if any fever, increased bleeding or pain. Physical Exam Narrative: GA: Alert and oriented ?3. HEENT: WNL. Heart: Regular rate and rhythm. Lungs: Clear to auscultation bilaterally. Abdomen: Bowel sounds present, nontender. EMBEDDED SYSTEMS SOFTWARE ENGINEER: spotting bleeding. Extremities: No edema, no cyanosis, no calves pain. Urinary Catheter Management: Lr Latex: Cath Placed During This Visit: yes Urinary Catheter Date of Insertion: 03/31/22 Urinary Catheter Time of Insertion: 11:35 History History History 2 Term 1 1 Miscarriages/Ectopic 0 Living Children 2 Discharge Data Studies Completed and Pending Pending at discharge Category Date Time Status ES surgery / GI images Routine Exams 03/31/22 10:57 Taken Pathology: Surgical [PTH] Routine Pth 03/31/22 13:49 Received Laboratory Results WBC 11.1 10^3/uL (4.0-10.0) H 04/01/22 04:50 RBC 4.02 10^6/uL (4.1-5.3) L 04/01/22 04:50 Hgb 12.1 g/dL (11.5-15.3) 04/01/22 04:50 Hct 37.2 % (37.0-47.0) 04/01/22 04:50 MCV 92.5 fl (81-99) 04/01/22 04:50 MCH 30.1 pg (28.0-34.0) 04/01/22 04:50 MCHC 32.5 g/dL (30.0-36.0) 04/01/22 04:50 RDW 13.4 % (12.1-15.1) 04/01/22 04:50 Plt Count 194 10^3/cmm (130-400) 04/01/22 04:50 MPV 12.9 fL (7.4-10.4) H 04/01/22 04:50 Neut % (Auto) 66.7 % 03/31/22 09:07 Lymph % (Auto) 19.4 % 03/31/22 09:07 [place] % (Auto) 9.2 % 03/31/22 09:07 Eos % (Auto) 4.1 % 03/31/22 09:07 Baso % (Auto) 0.5 % 03/31/22 09:07 Neut # (Auto) 5.35 10^3/uL (1.8-7.7) 03/31/22 09:07 Lymph # (Auto) 1.6 10^3/uL (0.8-4.8) 03/31/22 09:07 [place] # (Auto) 0.7 10^3/uL (0.2-0.9) 03/31/22 09:07 Eos # (Auto) 0.3 10^3/uL (0.0-0.8) 03/31/22 09:07 Baso # (Auto) 0.0 10^3/uL (0.0-0.1) 03/31/22 09:07 Nucleated RBC % (auto) 0 % 03/31/22 09:07 Nucleated RBCs # 0.0 /100WBC 03/31/22 09:07 Sodium 140 mmol/L (136-145) 03/31/22 09:07 Potassium 4.1 mmol/L (3.5-5.1) 03/31/22 09:07 Chloride 105 mmol/L (98-107) 03/31/22 09:07 Carbon Dioxide 23 mmol/L (22-29) 03/31/22 09:07 Anion Gap 16.1 (5-19) 03/31/22 09:07 BUN 14 mg/dL (8-23) 03/31/22 09:07 Creatinine 0.9 mg/dL (0.5-0.9) 03/31/22 09:07 GFR Calculation Not Reportable 03/31/22 09:07 Glucose 122 mg/dL (65-115) H 03/31/22 09:07 Calculated Osmolality 292 mOsm/kg (285-295) 03/31/22 09:07 Calcium 10.1 mg/dL (8.5-10.5) 03/31/22 09:07 Total Bilirubin 0.9 mg/dL (0.15-1.2) 03/31/22 09:07 AST 25 U/L (0-32) 03/31/22 09:07 ALT 22 U/L (0-33) 03/31/22 09:07 Alkaline Phosphatase 108 U/L (35-105) H 03/31/22 09:07 Total Protein 7.2 g/dL (6.6-8.7) 03/31/22 09:07 Albumin 4.1 g/dL (3.5-5.2) 03/31/22 09:07 Globulin 3.1 g/dL (1.3-4.6) 03/31/22 09:07 Blood Type O Positive 03/31/22 09:07 Rho(D) Type Positive 03/31/22 09:07 Antibody Screen Negative 03/31/22 09:07 Vitals Last Vital Signs Temp 97.5 F L 03/31/22 14:54 Pulse 62 04/01/22 04:45 Resp 15 04/01/22 04:45 BP 103/55 04/01/22 04:45 Pulse Ox 95 04/01/22 04:45 O2 Del Method 04/01/22 04:45 O2 Flow Rate 3 03/31/22 14:45 Discharge Plan Discharge Patient Disposition: Home Condition: Stable Prescriptions: New hydrocodone-acetaminophen 5-325 mg tablet 1 tab PO Q4H PRN (Reason: pain) Qty: 20 0RF ibuprofen 800 mg tablet 800 mg PO TID PRN (Reason: pain) Qty: 60 0RF acetaminophen 325 mg capsule 325 mg PO Q4H PRN (Reason: fever or pain) Qty: 60 0RF Continued spironolactone 25 mg tablet 25 mg PO DAILY Flovent Diskus 250 mcg/actuation blister with device 1 inh INHALATION DAILY glucosamine-chondroitin [Osteo Bi-Flex] 250-200 mg tablet 1 tab PO DAILY Rx Instructions: give after food/meal azelastine 137 mcg (0.1 %) aerosol,spray 1 spray INTRANASAL BID PRN (Reason: Allergy Symptoms) Rx Instructions: administer into each nostril bisoprolol fumarate 10 mg tablet 10 mg PO DAILY cholecalciferol (vitamin D3) 1,200 mg PO DAILY tramadol 50 mg tablet 75 mg PO BID PRN (Reason: pain) tizanidine 4 mg tablet 4 mg PO TID PRN (Reason: muscle spasticity) naproxen sodium [Flanax (naproxen)] 220 mg tablet 220 mg PO BID PRN (Reason: Pain) aspirin [Moises Low Dose Aspirin] 81 mg tablet,delayed release (DR/EC) 81 mg PO DAILY pravastatin 10 mg tablet 10 mg PO DAILY Qty: 90 3RF nitroglycerin [Nitrostat] 0.4 mg tablet, sublingual 0.4 mg sublingual Q5M PRN (Reason: chest pain) Qty: 25 3RF Rx Instructions: do not exceed 3 doses per episode Discharge Orders: Discharge Order (Routine); Ordered 04/01/22 Ordered By: Vinod Cali Referrals: Vinod Cali MD [Physician] - Discharge Diet: Soft Mechanical Discharge Activity: Limit activity as instructed Patient Instructions: Opioid Safety, Vaginal Hysterectomy (GEN), Bladder Sling for Women (GEN), Anterior Vaginal Repair (GEN), Posterior Vaginal Repair (GEN) Activity Restrictions/Additional Instructions: 1. Please call [facility] on next working day to make your post-operative appointment in 2 weeks. 2. Please stay home until you come back to the clinic on first post-operative check up. 3. Please follow instructions on your medications CAREFULLY. 4. If you have abdominal incision, do not cover it unless dressing is necessary because of drainage. OK to shower, but avoid bath. Leave steri-strips until they fall off. If they are still on one week after surgery, you may remove them. 5. If you had vaginal surgery or vaginal repair, Dr. Cali may instruct you to take SITZ bath. 6. Yellow, blood tinged odorous vaginal discharge is usually normal after hysterectomy or vaginal surgeries. 7. No sexual intercourse, tampons, or douches until you are completely released from the post-operative care. 8. Avoid constipation by eating right and maybe using some Metamucil or Milk of Magnesia. 9. All prescription refills are given during the working hours. Please do no wait till it runs out. Call the clinic at [phone] before your medication runs out. The clinic will get in touch with your doctor to prescribe medications if necessary. 10. Please remain within 40 mile radius from our hospital because emergencies do happen now and then during the post-operative period. 11. If you have stairs at home, take one step at a time slowly and minimize the number of trips. It helps to stay in one floor for the next few days. No lifting except what you can lift by one hand until you are released from the post-operative care. 12. Driving is discouraged until you are well healed. It may be 3-4 weeks before you feel strong enough to drive. You should be able to turn and look through the rear window without pain and you should be able to push the brake pedal very hard without pain before you drive. No fast rules, but SAFETY should be your primary concern. DO NOT drive if you are on sedating medications such as narcotics. 13. Call the clinic (during working hours) to make urgent appointment or go to the Emergency room, if any of the following occurs: i. Vaginal bleeding becomes heavy, more than a period. ii. Incision becomes red and sore, or drains pus. iii. Your temperature is over 100.4 or you have chill. iv. IV site becomes red and swollen (a little ``knot?? is usually OK) v. Persistent nausea and vomiting vi. Persistent constipation or diarrhea vii. Rash or allergic reaction to medications. Discharge Attestations IRRIGATION TECHNICIAN Time Spent in Discharge Care*: greater than 30 min Coding Level of Care Code Acute [employer]orer [facility] for Aline Rojas
--- NOTE | 2022-04-01 13:57 | PC.NURSE ---
Patient voided 40ml, bladder scan revealed 146ml remaining in bladder. Pt expresses that she still feels like she has urine in her bladder.
[2022-04-01 16:45] VITALS: BP 107/62; PULSE 63; RESP 16
[2022-04-01] MEDS: ibuprofen 800 mg tablet PO (16:56)
== END 2022-04-01 17:00 | disposition home or self-care (01) ==
PROVIDERS: Anesthesiology; Admitting Provider Obstetrics & Gynecology; PCP Registered Nurse; Visit Provider Obstetrics & Gynecology
PROC: (CPT 57260; principal; 2022-03-31 10:20)
PROC: (CPT 58720; 2022-03-31 10:20)
PROC: 0JQC0ZZ Repair Pelvic Region Subcutaneous Tissue and Fascia, Open Approach (ICD-10-PCS; CPT 57240; 2022-03-31 10:20)
PROC: (CPT 57288; 2022-03-31 10:20)
PROC: 0TJB8ZZ Inspection of Bladder, Via Natural or Artificial Opening Endoscopic (ICD-10-PCS; CPT 52000; 2022-03-31 10:20)
DX: N81.4 Uterovaginal prolapse, unspecified (principal); J44.9 Chronic obstructive pulmonary disease, unspecified; I10 Essential (primary) hypertension; E78.5 Hyperlipidemia, unspecified; E66.01 Morbid (severe) obesity due to excess calories; Z68.31 Body mass index [BMI] 31.0-31.9, adult
CPT/HCPCS: 57260; 57288; 58262; 36415; 51702; 51798; 80048; 80053; 85025; 85027; 86850; 86900; 88305; 93005; C1713; G0378; J0694; J1100; J1170; J1200; J1650; J1885; J2405; J2704; J3010; J3490; J7030; J7040; Q9968

== ENCOUNTER 2022-04-05 23:08 | Emergency (ER) | payer MEDICARE, SELFPAY ==
[2022-04-05 23:20] VITALS: BP 145/70; PULSE 74; RESP 20; TEMP 36.6; O2SAT 95; BMI 31.6
[2022-04-06 01:04] LABS: Bilirubin Urine Neg (Negative); Blood Urine 3+ (Negative); Glucose Urine UA Norm (Normal); Ketones Urine Negative (Negative); Nitrate Urine Negative (Negative); Protein Urine 1+ (Negative); Urine Appearance Cloudy (CLEAR); Urine Color Red (Yellow); pH Urine 8 (5-7)
[2022-04-06 01:05] LABS: Add Urine Microscopic? YES; Bacteria Urine 1+ /hpf; Leukocyte Esterase Urine 2+ (Negative); RBC Urine TOO NUMEROUS TO CNT /hpf (0-2); Squamous Epithelial Cell Urine 0-4 /hpf (0-5); Sulfosalicylic Acid Urine Positive (Negative); Urobilinogen Urine Norm (Negative); WBC Urine 15-25 /hpf (0-5)
[2022-04-06 01:06] LABS: Add Urine Culture? Yes
[2022-04-06] MEDS: cefTRIAXone 1,000 MG in lidocaine 1% 2.1 ML 1 MG IM (01:15)
--- NOTE | 2022-04-06 01:15 | W.ED.FEMALGU ---
HPI - Female Genitourinary General: Chief complaint: Urogenital-Female Stated complaint: Post surgery pain, Unable to urinate without pain Time Seen by Provider: 04/06/22 00:18 History of Present Illness: 81-year-old female patient presents to the emergency department with urinary retention. Patient states she had a hysterectomy 4 days ago patient states post hysterectomy she had urinary retention and in her HYDROTECHNICAL SPECIALIST put a Lr catheter in place and removed today. Patient states she went home and states that she has not been able to urinate but very little since that time. Patient states when she did try to urinate it burned and caused pain from the burning. Patient denies any fever. Patient denies any abdominal pain or back pain. Patient denies any other complaints at this time. Associated symptoms: Deny abdominal pain, headache(s), nausea or syncope Review of Systems Const: Denies: fever(s), chills, body aches, change in appetite, change in weight, fatigue, malaise or diaphoresis Eyes: Denies: change in vision, blurry vision, blind spots, photophobia, eye discomfort, eye discharge, eye redness, floaters or seeing flashes ENMT: Denies: throat pain, uvular edema, enlarged tonsils, odynophagia, hoarseness, mouth pain, swelling of lips/tongue, oral sores, bleeding gums, dental pain, dry mouth, ear or mastoid pain, ear discharge, change in hearing, tinnitus, disequilibrium, nasal discharge, nasal congestion, post nasal drip or sinus pain Card: Denies: chest pain, palpitations, irregular heart rhythm, edema, swelling of feet/ankles, lightheadedness, syncope, pre-syncope, dyspnea on exertion, orthopnea, leg pain with exertion or acrocyanosis Resp: Denies: dyspnea, productive cough, non-productive cough, wheezing, stridor, pain on inspiration, change in phlegm color, hemoptysis or chest congestion GI: Denies: abdominal pain, nausea, vomiting, hematemesis, dysphagia, diarrhea, constipation, GI cramping, change in bowel habits or rectal pain : Denies: flank pain, urinary frequency, urinary urgency, urinary hesitancy or hematuria Musc: Denies: neck pain, back pain, extremity pain, extremity swelling, joint pain, joint swelling, joint redness, joint warmth or deformity Skin/Breast: Denies: rash, pruritus, erythema, sores, new lesions, changes in skin color or dry skin Neuro: Denies: headache(s), numbness in extremities, weakness in extremities, sensory changes, lack of coordination, difficulty walking, frequent falls, dizziness, vertigo, confusion, behavioral changes, Slurred speech present, difficulty communicating thoughts or seizure-like activity Psych: Denies: anxiety, depression, suicidal ideation or homicidal ideation Endo: Denies: polyuria, polydipsia, tired all the time, cold intolerance, excessive sweating, flushing, hot flashes or heat intolerance Yan/Lymph: Denies: easy bruising, easy bleeding, petechiae, purpura, enlarged lymph nodes or tender lymph nodes All/Imm: Denies: urticaria, throat swelling, tongue swelling, facial swelling, acute wheezing or itchy eyes PFSH ED PFSH: Medical History Chronic back pain COPD (chronic obstructive pulmonary disease) DJD (degenerative joint disease) Hypertension Multiple thyroid nodules Primary hyperparathyroidism Surgical History Hx of cholecystectomy Family History Mother Diabetes Cancer Sister Aneurysm Family/Other Breast cancer maternal aunt, age onset unknown Denies family history of Colon cancer Ovarian cancer CAD (coronary artery disease) Clotting disorder Dementia Heart disease Hyperlipidemia Chronic kidney disease (CKD) Suicide Anesthesia complication Bleeding disorder Lung disease Hypertension Uterine cancer Thyroid condition Stroke Social History Smoking and tobacco status: never smoked Second hand smoke exposure: No Alcohol intake: never History of recent travel: No Physical Exam Const: COMMON NORMALS: no acute distress, patient oriented x3, healthy appearing, alert and well nourished GENERAL APPEARANCE: cooperative, comfortable, well kempt and well developed; not ill appearing ORIENTATION/CONSCIOUSNESS: Yes awake, Yes oriented to person, Yes oriented to place and Yes oriented to time HENMT: THROAT: no uvular edema Neck/C-Spine: COMMON NORMALS: full ROM, no lymphadenopathy, supple, no meningeal signs, no JVD and Thyroid normal GENERAL: Yes normal visual inspection and Yes trachea midline THYROID: Thyroid normal CERVICAL SPINE: Yes cervical ROM normal Lymph: LYMPHATIC: no lymphadenopathy noted and no lymphedema noted Chest: COMMONS NORMALS: normal inspection of the chest and normal palpation of entire chest wall Resp: COMMON NORMALS: normal respiratory effort, No retractions, No use of accessory muscles and clear to auscultation bilaterally EFFORT & INSPECTION: Yes able to speak in complete sentences and Yes symmetric chest movement AUSCULTATION: clear to auscultation bilaterally Cardio: COMMON NORMALS: no JVD, regular rate and regular rhythm RATE: regular rate RHYTHM: regular rhythm GI: COMMON NORMALS: Normal to inspection, nondistended, normoactive bowel sounds present, Soft to palpation, non-tender, No hepatosplenomegaly present, no masses and no bruits INSPECTION: Yes normal to inspection AUSCULTATION: Yes normoactive bowel sounds PALPATION: Yes Soft to palpation and Yes No hepatosplenomegaly present PERCUSSION: normal to percussion RECTAL EXAM: deferred : COMMON NORMALS: Yes no CVA tenderness, Yes normal external appearance, Yes normal appearance of the vagina, Yes normal appearance of the cervix, Yes No adnexal tenderness and Yes no masses BLADDER/KIDNEY EXAM: Yes no CVA tenderness Back/Pelvis: COMMON NORMALS: no CVA tenderness, thoracic and lumbar spine normal to inspection, no thoracic nor lumbar tenderness, thoraco-lumbar ROM normal and straight leg raise negative bilaterally THORACIC SPINE/UPPER BACK: Yes normal to inspection LUMBAR SPINE/LOWER BACK: Yes normal to inspection Extremity: COMMON NORMALS: normal to inspection, full ROM and capillary refill normal GENERAL: Yes normal exam except as noted Neuro: COMMON NORMALS: patient oriented x3, CN's II-XII intact bilaterally, moves all extremities, no focal motor deficits, no sensory deficits noted, deep tendon reflexes 2+ bilaterally and gait normal SENSORIUM/ORIENTATION: Yes alert, Yes oriented to person, Yes oriented to place and Yes oriented to time MENINGEAL SIGNS: Yes no meningeal signs CRANIAL NERVES: Yes CN normal except as noted SPEECH: speech normal GAIT: Yes Normal gait present SENSORY EXAM: Yes extremities MOTOR EXAM: 5/5 motor strength present throughout Psych: COMMON NORMALS: mental status grossly normal, Normal thought process present, cooperative, normal affect, speech normal, activity/motor behavior normal, denies hallucinations, denies homicidal ideation and denies suicidal ideation APPEARANCE: Yes grossly normal and Yes well kempt ATTITUDE: Yes calm ACTIVITY/MOTOR BEHAVIOR: Yes appropriate eye contact SPEECH: Yes normal speech THOUGHT PROCESS: Normal thought process present THOUGHT CONTENT: Yes Normal thought content present ATTENTION/CONCENTRATION: Yes attention grossly intact MEMORY/COGNITION: Yes memory grossly intact INSIGHT: Good insight present (Psych) JUDGEMENT: Good judgement present (Psych) Skin: COMMON NORMALS: no rashes or lesions noted, no wounds, turgor normal, no jaundice, no petechiae and no mottling GENERAL SKIN EXAM: no rashes or lesions noted and turgor normal Course Vital Signs: Vital signs: Vital Signs Temperature 97.8 F 04/05/22 23:20 Pulse Rate 74 04/05/22 23:20 Respiratory Rate 20 H 04/05/22 23:20 Blood Pressure 145/70 04/05/22 23:20 Pulse Oximetry 95 04/05/22 23:20 Oxygen Delivery Me thod 04/05/22 23:20 MDM - Female Medical Decision Making Patient is well-appearing nontoxic and in no acute distress.81-year-old female patient presents to the emergency department with urinary retention. Patient states she had a hysterectomy 4 days ago patient states post hysterectomy she had urinary retention and in her HYDROTECHNICAL SPECIALIST put a Lr catheter in place and removed today. Patient states she went home and states that she has not been able to urinate but very little since that time. Patient states when she did try to urinate it burned and caused pain from the burning. Patient denies any fever. Patient denies any abdominal pain or back pain. Patient denies any other complaints at this time. Patient was noted to have greater than 500 mL of urinary retention. Lr catheter was in place. Hematuria is noted. Patient states she had immediate relief of pressure. Patient patient's urine and recent Lr catheterization I will go ahead and treat her urine at this time. We will keep Lr catheter in place. Patient has a follow-up with her HYDROTECHNICAL SPECIALIST who did her surgery in a.m. Patient advised to keep this Lr catheter in place and see HYDROTECHNICAL SPECIALIST tomorrow I advised patient she may likely need a follow-up with urology as well. Return precautions have been advised home care instructions have been reviewed Lab Data Laboratory Results Urine Color Red (Yellow) 04/06/22 00:43 Urine Appearance Cloudy (CLEAR) 04/06/22 00:43 Urine pH 8 (5-7) H 04/06/22 00:43 Ur Specific [place] 1.010 (1.005-1.030) 04/06/22 00:43 Urine Protein 1+ (Negative) H 04/06/22 00:43 Urine Glucose (UA) Norm (Normal) 04/06/22 00:43 Urine Ketones Negative (Negative) 04/06/22 00:43 Urine Blood 3+ (Negative) H 04/06/22 00:43 Urine Nitrate Negative (Negative) 04/06/22 00:43 Urine Bilirubin Neg (Negative) 04/06/22 00:43 Prot Sulfosalicylic Acd Positive (Negative) 04/06/22 00:43 Urine Urobilinogen Norm mg/dL (Negative) 04/06/22 00:43 Ur Leukocyte Esterase 2+ (Negative) H 04/06/22 00:43 Urine RBC Too numerous to cnt /hpf (0-2) H 04/06/22 00:43 Urine WBC 15-25 /hpf (0-5) H 04/06/22 00:43 Ur Squamous Epith Cells 0-4 /hpf (0-5) H 04/06/22 00:43 Amorphous Sediment Not Reportable 04/06/22 00:43 Urine Bacteria 1+ /hpf (NONE) H 04/06/22 00:43 Discharge Plan Discharge Patient Disposition: Home Clinical Impression: Acute urinary retention Condition: Stable Prescriptions: New cephalexin 500 mg capsule 500 mg PO Q8H 7 Days Qty: 21 0RF No Action spironolactone 25 mg tablet 25 mg PO DAILY Flovent Diskus 250 mcg/actuation blister with device 1 inh INHALATION DAILY glucosamine-chondroitin [Osteo Bi-Flex] 250-200 mg tablet 1 tab PO DAILY Rx Instructions: give after food/meal azelastine 137 mcg (0.1 %) aerosol,spray 1 spray INTRANASAL BID PRN (Reason: Allergy Symptoms) Rx Instructions: administer into each nostril bisoprolol fumarate 10 mg tablet 10 mg PO DAILY cholecalciferol (vitamin D3) 1,200 mg PO DAILY tramadol 50 mg tablet 75 mg PO BID PRN (Reason: pain) tizanidine 4 mg tablet 4 mg PO TID PRN (Reason: muscle spasticity) naproxen sodium [Flanax (naproxen)] 220 mg tablet 220 mg PO BID PRN (Reason: Pain) aspirin [Moises Low Dose Aspirin] 81 mg tablet,delayed release (DR/EC) 81 mg PO DAILY pravastatin 10 mg tablet 10 mg PO DAILY Qty: 90 3RF nitroglycerin [Nitrostat] 0.4 mg tablet, sublingual 0.4 mg sublingual Q5M PRN (Reason: chest pain) Qty: 25 3RF Rx Instructions: do not exceed 3 doses per episode ibuprofen 800 mg tablet 800 mg PO TID PRN (Reason: pain) Qty: 60 0RF hydrocodone-acetaminophen 5-325 mg tablet 1 tab PO Q4H PRN (Reason: pain) Qty: 20 0RF acetaminophen 325 mg capsule 325 mg PO Q4H PRN (Reason: fever or pain) Qty: 60 0RF Discharge Orders: Discharge ED (Routine); Ordered 04/06/22 Ordered By: Fe Damon Referrals: Hali Horne [Primary Care Provider] - Discharge Diet: Advance as tolerated Discharge Activity: Increase activity as tolerated Patient Instructions: Opioid Safety, Pain Management Activity Restrictions/Additional Instructions: Please keep Lr catheter in place until seen by HYDROTECHNICAL SPECIALIST Please take medications as directed please return to the emergency department with any worsening of symptoms Coding Level of Care Code ED Cad Specialist for Aline Rojas
[2022-04-06 01:47] VITALS: RESP 16; O2SAT 98
== END 2022-04-06 01:48 | disposition home or self-care (01) ==
PROVIDERS: Emergency Provider Registered Nurse; PCP Registered Nurse
DX: R33.9 Retention of urine, unspecified (principal); Z79.82 Long term (current) use of aspirin; J44.9 Chronic obstructive pulmonary disease, unspecified; I10 Essential (primary) hypertension
CPT/HCPCS: 51702; 51798; 81001; 87077; 87086; 87186; 96372; 99284; J0696

== ENCOUNTER → 2022-04-29 10:55 | Outpatient (BNVA) | payer MEDICARE, SELFPAY | PROVIDERS: PCP Registered Nurse; Visit Provider Obstetrics & Gynecology | DX: R10.2 Pelvic and perineal pain (principal) | CPT/HCPCS: 76857 ==

== ENCOUNTER → 2022-07-29 15:12 | Outpatient (BNVA) | payer MEDICARE, SELFPAY | PROVIDERS: PCP Registered Nurse; Visit Provider Orthopaedic Surgery | DX: M43.16 Spondylolisthesis, lumbar region (principal); Z98.1 Arthrodesis status | CPT/HCPCS: 72100; 99214 ==

== ENCOUNTER 2022-09-01 05:45 | Outpatient (CLI) | payer MEDICARE, SELFPAY | END 2022-09-01 05:46 | disposition home or self-care (01) | LOC: RT 09-08 05:47 | PROVIDERS: PCP Registered Nurse; Visit Provider Orthopaedic Surgery | DX: Z13.6 Encounter for screening for cardiovascular disorders (principal); I49.8 Other specified cardiac arrhythmias | CPT/HCPCS: 93005 ==

== ENCOUNTER → 2022-09-02 15:05 | Outpatient (BNVA) | payer MEDICARE, SELFPAY | PROVIDERS: PCP Registered Nurse; Visit Provider Orthopaedic Surgery | DX: M54.9 Dorsalgia, unspecified (principal) | CPT/HCPCS: 99024; 99213 ==

== ENCOUNTER 2022-09-08 16:27 | Inpatient (IN) | payer MEDICARE, SELFPAY ==
--- NOTE | 2022-09-01 13:08 | ECG_ITS ---
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 Measurements Intervals [place] Rate: 54 P: 66 GA: 194 QRS: -4 QRSD: 103 T: 33 QT: 424 QTc: 403 Interpretive Statements SINUS BRADYCARDIA WITH SINUS ARRHYTHMIA Compared to ECG 03/26/2022 11:42:44 Myocardial infarct finding no longer present Electronically Signed On 09-01-2022 21:03:21 TIRE MOLD TESTER by Dayana Farfan M.D. [id number]
[2022-09-01 13:31] VITALS: BMI 30.5
--- NOTE | 2022-09-01 15:40 | P.ANESASSM_ITS ---
Pre-Anesthetic Assessment Height/Weight: Height 1.63 m Weight 80.739 kg Preop Diagnosis: Uterine prolapse, pelvic pain, uterine fibroid Operation Date: 09/08/22 09:45 Proposed Procedures p Spinal Fusion: L2 06024, 05266m8, 62467,65405,57539,65059, M54.9(Not Applicable) - Joey Anguiano, DO Familial anesthetic complications: none Was Beta Jesica taken within 24 hours: Yes Was Clonidine taken within 24 hours: N/A Social No alcohol and No tobacco Exam alert, oriented x 3, clear to auscultation bilaterally and regular rate & rhythm Airway Submandibular: within normal limits Cervical ROM: within normal limits Mallampati: Class III Dentition: caps Pulmonary Asthma CV/HEM Arrythmia and Hypertension Metabolic Hyperlipidemia Musc/skel Lower Back Pain and Osteoarthritis/DJD Anesthetic Plan ASA status: 3 Anesthesia: General Other: Discussed transfusion Medications/Allergies Home Medications Medication Instructions Recorded Confirmed Last Taken Type azelastine 137 mcg (0.1 %) nasal 1 spray intranasal BID PRN Allergy 05/01/20 09/01/22 09/01/22 History spray aerosol Symptoms fluticasone propionate 250 1 inh inhalation DAILY 05/01/20 09/01/22 09/01/22 History mcg/actuation blister powder for inhalation (Flovent Diskus) spironolactone 25 mg tablet 25 mg PO DAILY 05/01/20 09/01/22 09/01/22 History bisoprolol fumarate 10 mg tablet 10 mg PO DAILY 01/15/22 09/01/22 09/01/22 History cholecalciferol (vitamin D3) 1,200 mg PO DAILY 01/15/22 09/01/22 09/01/22 History naproxen sodium 220 mg tablet 220 mg PO BID PRN Pain 02/03/22 09/01/22 09/01/22 History (Flanax (naproxen)) nitroglycerin 0.4 mg sublingual 0.4 mg sublingual Q5M PRN chest 03/23/22 09/01/22 Unknown Rx tablet (Nitrostat) pain #25 tabs Allergies Allergy/AdvReac Type Severity Reaction Status Date / Time fexofenadine Allergy Unknown Unknown Verified 07/29/22 15:17 montelukast Allergy Unknown Unknown Verified 07/29/22 15:17 [facility] Anesthesia Medical History Chronic back pain COPD (chronic obstructive pulmonary disease) DJD (degenerative joint disease) History of cystocele Hypertension Multiple thyroid nodules Pelvic organ prolapse quantification stage 2 cystocele Primary hyperparathyroidism Surgical History H/O: hysterectomy (~03/31/22) 03/31/2022: [facility] with left oophorectomy, anterior colporrhaphy, single incision mid urethral sling, posterior colporrhaphy and cystoscopy performed by Dr. Cali at [facility] Hx of cholecystectomy Status post lumbar spinal fusion Family History Mother Diabetes Cancer Sister No problems noted. Family/Other Breast cancer maternal aunt, age onset unknown Denies family history of Colon cancer Ovarian cancer Heart disease Hyperlipidemia Hypertension Uterine cancer Thyroid condition Stroke Social History Smoking and tobacco status: never smoked Data Anesthesia Cardiac Studies: Sestamibi Stress Test (Cardiology) 03/23
[2022-09-08] VITALS (38 sets, daily range): BP systolic 90–144; BP diastolic 47–85; PULSE 48–100; RESP 11–20; TEMP 36.1–37.1; O2SAT 89–100
--- NOTE | 2022-09-08 08:37 | ANES.PAUD2 ---
Pre-Anesthetic Update Pre-Anesthetic Assessment: Date of Surgery/Procedure: 09/08/22 Preop Diagnosis: DDD L spine, SI joint arthritis Proposed Procedure: Operation Date: 09/08/22 09:45 Proposed Procedures p Spinal Fusion: L2 68439, 68965g1, 40375,85587,41783,32766, M54.9(Not Applicable) - Joey Anguiano, DO Any changes to Pre-Anesthetic Assessment?: No Last Intake: > 8hrs Vitals: Temperature 98.7 F 09/08/22 08:04 Temperature Source Temporal Artery S can 09/08/22 08:04 Pulse Rate 48 L 09/08/22 08:04 Respiratory Rate 16 09/08/22 08:04 Blood Pressure 140/76 09/08/22 08:04 Blood Pressure Shalonda n 97 09/08/22 08:04 Pulse Oximetry 96 09/08/22 08:04 Oxygen Delivery Me thod 09/08/22 08:04 Exam: Pre-Anes Outpt Exam: alert, oriented x 3, clear to auscultation bilaterally and regular rate & rhythm Cardiac Studies: Sestamibi Stress Test (Cardiology) 03/23/22
[2022-09-08] MEDS: sodium chloride 0.9% 1,000 ML 30 ML IV (08:40)
--- NOTE | 2022-09-08 08:54 | W.PM.OPSUD ---
Surgery/Procedure H&P Update DATE OF PROCEDURE: September 08, 2022 DATE H&P PERFORMED: 09/02/22 H&P UPDATE INFORMATION: I have reviewed H&P completed within last 30 days, I have examined patient prior to procedure and No changes to prior documentation PREOP DIAGNOSIS: DDD L spine, SI joint arthritis PLANNED PROCEDURE: Operation Date: 09/08/22 09:45 Proposed Procedures p Spinal Fusion: L2 45153, 59408s3, 06851,59280,19410,87151, M54.9(Not Applicable) - Joey Anguiano DO
[2022-09-08] MEDS: ceFAZolin 2,000 MG in sodium chloride 0.9% (plus) 50 ML 100 MG IV ×2 (09:35→16:49)
[2022-09-08 09:36] LABS: Basophils # 0.1 10^3/uL (0.0-0.1); Basophils % 0.7 %; Eosinophils # 0.4 10^3/uL (0.0-0.8); Eosinophils % 5.1 %; Hematocrit 45.5 % (37.0-47.0); Hemoglobin 14.9 g/dL (11.5-15.3); Lymphocytes # 1.4 10^3/uL (0.8-4.8); Mean Corpuscular HGB Conc 32.7 g/dL (30.0-36.0); Mean Corpuscular Hemoglobin 30.1 pg (28.0-34.0); Mean Corpuscular Volume 91.9 fl (81-99); Mean Platelet Volume 12.7 fL (7.4-10.4); Monocytes # 0.7 10^3/uL (0.2-0.9); Monocytes % 10.4 %; Neutrophils # 4.48 10^3/uL (1.8-7.7); Neutrophils % 63.7 %; Nucleated Red Blood Cells % 0 %; Platelet Count 235 10^3/cmm (130-400); Red Blood Count 4.95 10^6/uL (4.1-5.3); Red Cell Distribution Width 13.1 % (12.1-15.1)
[2022-09-08] MEDS: lidocaine-epi 1% 20 mL INJ 10 ML INJECTION (10:10)
[2022-09-08] MEDS: vancomycin 1,000 MG SDV 1000 MG XX (10:53)
[2022-09-08] MEDS: heparin, porcine 1,000 unit/mL INJ 10 mL 5000 UNIT IRRIGATION (10:57)
--- NOTE | 2022-09-08 11:22 | XR_ITS ---
WS: [id number] Exam: XR lumbar spine 1V [id number] Date/Time of Exam: 09/08/2022 11:23 AM Reason For Exam: OR PICS Comparison with previous exam 07/29/2022. Single intraoperative lateral view of the lower lumbar spine is submitted for evaluation. Pedicle scr ews in place in L4, L5 and S1. Previously noted posterior rods have been removed. No other significan t finding on this limited image.
[2022-09-08] MEDS: HYDROmorphone 1 mg/mL INJ 1 mL 0.5 MG IVP ×3 (11:52→12:36)
--- NOTE | 2022-09-08 12:11 | P.OP_ITS ---
Operative Report Date of procedure: September 08, 2022 Pre-op diagnosis: Preop Diagnosis DDD L spine, SI joint arthritis Post-op diagnosis: same Procedure done: 1. L2 - pelvis fusion 2. L2 - S1 instrumentation 3. Lumbopelvic fixation 4. use of computer navigation / Stereotactic for spine 5. bone marrow aspirate from right iliac crest 6. use of allograft Surgeon: Joey Anguiano Charge Accounts Audit Clerk: Huang Yip Estimated blood loss (mL): 200
[2022-09-08] MEDS: fentaNYL 50 mcg/mL INJ 2mL IVP ×2 (12:48→13:07)
[2022-09-08] MEDS: ketorolac 30 mg/mL INJ IVP ×2 (13:42→20:34)
[2022-09-08] MEDS: HYDROcodone-acetaminophen 5-325 mg Tablet PO ×2 (13:42→21:26)
--- NOTE | 2022-09-08 13:54 | ANE.PACU2 ---
Inpatient post-anesthesia follow up: Airway intact: Yes Vital signs: Temperature 97.9 F Pulse Rate 55 Respiratory Rate 18 Blood Pressure 119/61 Pulse Oximetry 94 Oxygen Delivery Me thod Nasal Cannula Oxygen Flow Rate 3 Fraction of Inspir ed Oxygen Hydration adequate: Yes Nausea and vomiting: No Pain level: 1 Mental status: Baseline
[2022-09-08] MEDS: morphine 4 mg/mL SDV 1 mL 2 MG IVP (14:11)
[2022-09-08] MEDS: lactated ringers 1,000 ML 90 ML IV (16:50)
[2022-09-08] MEDS: docusate sodium 100 mg Capsule PO (18:12)
[2022-09-09] VITALS: PULSE 68; RESP 16; O2SAT 93
[2022-09-09] MEDS: ceFAZolin 2,000 MG in sodium chloride 0.9% (plus) 50 ML 100 MG IV ×2 (01:09→09:44)
[2022-09-09] MEDS: HYDROcodone-acetaminophen 5-325 mg Tablet PO ×2 (03:12→18:52)
[2022-09-09] MEDS: lactated ringers 1,000 ML 90 ML IV (04:25)
[2022-09-09 04:40] VITALS: BP 99/64; PULSE 63; RESP 17; TEMP 36.8; O2SAT 96
--- NOTE | 2022-09-09 07:27 | PM.PN ---
Subjective Subjective: POD 1 Patient resting comfortably. Reports some mild back pain. Leg pain has improved. Denies any shortness of breath, chest pain, headaches. Vitals/I&O/Wt Last Vital Signs Temp 98.2 F 09/09/22 04:40 Pulse 63 09/09/22 04:40 Resp 17 09/09/22 04:40 BP 99/64 09/09/22 04:40 Pulse Ox 96 09/09/22 04:40 O2 Del Method 09/09/22 00:00 O2 Flow Rate 2 09/09/22 00:00 09/08/22 09/09/22 09/09/22 22:59 06:59 14:59 Intake Total 1410 / 1660 1410 / 3070 Output Total 500 / 1450 Balance 910 / 210 1410 / 1620 Physical Exam Narrative: Patient presents alert and oriented x3 with a good general appearance normal mood and affect. Normal coordination normal stability. Mild tenderness around the incisional site with the incision appear to be clean and dry. No signs of erythema or drainage. No signs of infection. Patient denies any fevers or chills. 5/5 motor strength both lower extremities with negative straight leg raise bilaterally. Calves are supple no medial thigh tenderness. Pulses are 2+ at the dorsalis pedis and posterior tibial region. Good capillary refill throughout normal sensation light touch both lower extremities. Urinary Catheter Management: Lr: Cath Placed During This Visit: yes Reason for Continuing Indwelling Catheter: Acute Urinary Retention or Obstruction Urinary Catheter Date of Insertion: 09/08/22 Urinary Catheter Time of Insertion: 10:00 Data 09/08/22 08:41 09/08/22 08:41 A&P Assessment and plan (1) Status post lumbar spinal fusion: Physical therapy to mobilize. Discussed with the nurse to discontinue Lr catheter and Hemovac drain. Continue abdominal binder when up and mobilizing. Discharge home later today. We will see her back in the office in 1 week's time for wound check. Continue incentive spirometry at home for pulmonary toilet. No bending lifting or twisting activities continue walking program. We will call if she is having problems. Attestations Medical Necessity Statement*: Home later this morning. Coding Level of Care Code Acute Code for Chg Fwd Diagnoses Status post lumbar spinal fusion Z98.1
[2022-09-09 08:00] VITALS: BP 116/71; PULSE 59; RESP 15; TEMP 36.6; O2SAT 96
[2022-09-09 11:23] VITALS: BP 137/75; PULSE 59; RESP 16; TEMP 36.7; O2SAT 96
--- NOTE | 2022-09-09 12:20 | PC.CHAP ---
Pastoral Care Encounter/Spiritual Assessment Type of Contact [] Declined paper goods machine operator visit [] Patient/Family/Request visit [] Outpatient visit [] Follow-up visit [] Physician referral [] Code/Alert [x] Routine visit [] Staff referral [] Actively dying [] Patient sleeping [] Family support [] [] Out of room [] Palliative care [] [x] Receiving care in room [] Pre-surgical visit [] Trauma [] Long length of stay [] ICU visit [] Other: Relational/Emotional Strength [x] Patient feels connected with others/family/visitors/staff [] Distress [] Loneliness/isolation [] Abandonment Spirituality of Patient [] Person of Naida [] Attends Confucianism of their Naida [x] Believes in Prayer [] Reads Bible or Mu-Ism materials [] There are Spiritual issues to be addressed Substance Abuse Counselor Interventions [x] Prayer [x] Active listening [x] Non-anxious presence [x] Spiritual/emotional support [] Crisis/trauma care [x] Spiritual counseling [] Bereavement support [] Provided bereavement packet [] Provided Bible/devotional materials [] Provided toy/stuffed animal, coloring book to patient or family member [] Provided Communion [] Anointing/Martin [] Salvation [x] Completed spiritual assessment [] Other: Impact on Illness or Injury [] Angry [] Fearful [] Anxious [] Often cries [] Exhaustion [] Unable to work [] Unable to attend mandaeism [] Unable to walk/stand [] Unable to read [] Unable to drive [] Unable to eat/drink [] Unable to sleep [] Unable to be with family [] Patient intubated [] Other: Summary senior not sure about her waiting doctors report has a good attitude feeling better go home Time spent with patient 10 mins
[2022-09-09 16:00] VITALS: BP 138/81; PULSE 71; RESP 15; TEMP 36.8; O2SAT 95
[2022-09-09] MEDS: ondansetron 4 MG Tablet PO (18:52)
--- NOTE | 2022-09-10 08:59 | PM.DCS ---
Discharge Providers Date of Admission: 09/08/22 16:27 Date of Discharge: September 09, 2022 Attending Provider at Admission: Joey Anguiano DO Attending Provider at Discharge: Joey Anguiano DO Primary Care Provider: Hali Horne Diagnoses at Discharge Discharge Diagnosis (1) Status post lumbar spinal fusion: Status: Acute Reason for Visit Reason for Visit: L2 PSF [id number],M54.9 Physical Exam Urinary Catheter Management: Lr: Cath Placed During This Visit: yes Reason for Continuing Indwelling Catheter: Acute Urinary Retention or Obstruction Urinary Catheter Date of Insertion: 09/08/22 Urinary Catheter Time of Insertion: 10:00 Discharge Data Studies Completed and Pending Completed Studies During Hospitalization Category Date Time Status XR lumbar spine 1V [id number] Routine Exams 09/08/22 11:22 Completed Laboratory Results WBC 7.0 10^3/uL (4.0-10.0) 09/08/22 08:41 RBC 4.95 10^6/uL (4.1-5.3) 09/08/22 08:41 Hgb 14.9 g/dL (11.5-15.3) 09/08/22 08:41 Hct 45.5 % (37.0-47.0) 09/08/22 08:41 MCV 91.9 fl (81-99) 09/08/22 08:41 MCH 30.1 pg (28.0-34.0) 09/08/22 08:41 MCHC 32.7 g/dL (30.0-36.0) 09/08/22 08:41 RDW 13.1 % (12.1-15.1) 09/08/22 08:41 Plt Count 235 10^3/cmm (130-400) 09/08/22 08:41 MPV 12.7 fL (7.4-10.4) H 09/08/22 08:41 Neut % (Auto) 63.7 % 09/08/22 08:41 Lymph % (Auto) 20.0 % 09/08/22 08:41 Rock % (Auto) 10.4 % 09/08/22 08:41 Eos % (Auto) 5.1 % 09/08/22 08:41 Baso % (Auto) 0.7 % 09/08/22 08:41 Neut # (Auto) 4.48 10^3/uL (1.8-7.7) 09/08/22 08:41 Lymph # (Auto) 1.4 10^3/uL (0.8-4.8) 09/08/22 08:41 Rock # (Auto) 0.7 10^3/uL (0.2-0.9) 09/08/22 08:41 Eos # (Auto) 0.4 10^3/uL (0.0-0.8) 09/08/22 08:41 Baso # (Auto) 0.1 10^3/uL (0.0-0.1) 09/08/22 08:41 Nucleated RBC % (auto) 0 % 09/08/22 08:41 Nucleated RBCs # 0.0 /100WBC 09/08/22 08:41 Sodium Cancelled 09/08/22 08:41 Potassium Cancelled 09/08/22 08:41 Chloride Cancelled 09/08/22 08:41 Carbon Dioxide Cancelled 09/08/22 08:41 Anion Gap Cancelled 09/08/22 08:41 BUN Cancelled 09/08/22 08:41 Creatinine Cancelled 09/08/22 08:41 GFR Calculation Cancelled 09/08/22 08:41 Glucose Cancelled 09/08/22 08:41 Calculated Osmolality Cancelled 09/08/22 08:41 Calcium Cancelled 09/08/22 08:41 Blood Type O Positive 09/08/22 08:41 Rho(D) Type Positive 09/08/22 08:41 Antibody Screen Negative 09/08/22 08:41 Vitals Last Vital Signs Temp 98.2 F 09/09/22 16:00 Pulse 71 09/09/22 16:00 Resp 15 09/09/22 16:00 BP 138/81 09/09/22 16:00 Pulse Ox 95 09/09/22 16:00 O2 Del Method 09/09/22 00:00 O2 Flow Rate 2 09/09/22 00:00 Discharge Plan Discharge Patient Disposition: Home Condition: Stable Prescriptions: New hydrocodone-acetaminophen 5-325 mg tablet 1 - 2 tab PO .Q4-6H Qty: 40 0RF Continued spironolactone 25 mg tablet 25 mg PO DAILY Flovent Diskus 250 mcg/actuation blister with device 1 inh INHALATION DAILY azelastine 137 mcg (0.1 %) aerosol,spray 1 spray INTRANASAL BID PRN (Reason: Allergy Symptoms) Rx Instructions: administer into each nostril bisoprolol fumarate 10 mg tablet 10 mg PO DAILY cholecalciferol (vitamin D3) 1,200 mg PO DAILY nitroglycerin [Nitrostat] 0.4 mg tablet, sublingual 0.4 mg sublingual Q5M PRN (Reason: chest pain) Qty: 25 3RF Rx Instructions: do not exceed 3 doses per episode (DME) Bone Growth Stimulator E0748 See Rx Instructions .Route .MEDSUPPLY Qty: 1 0RF Rx Instructions: As directed (DME) Intraoperative Neuromonitoring See Rx Instructions .Route .MEDSUPPLY Qty: 1 0RF Rx Instructions: As directed Held naproxen sodium [Flanax (naproxen)] 220 mg tablet 220 mg PO BID PRN (Reason: Pain) Hold Instructions: Resume on 10/07/22. Discharge Orders: Discharge Order (Routine); Ordered 09/09/22 Ordered By: Huang Yip Referrals: Joey Anguiano DO [Physician] - 09/16/22 8:45 am Discharge Diet: Advance as tolerated Discharge Activity: Limit activity as instructed Patient Instructions: Hydrocodone/Acetaminophen (By mouth), Lumbar Spinal Fusion (GEN), Opioid Safety Activity Restrictions/Additional Instructions: Thank you for choosing [facility] for your care! The following is a list of instructions, from your provider, to follow upon your discharge to ensure you have the optimal recovery from your recent injury or surgery. Follow-up care is a obrien part of your treatment and safety. Be sure to make and go to all appointments and call your doctor if you are having problems. If you do not already have a follow-up appointment made, call Dr. Anguiano's] office in the next 1-3 days to make follow up appointment for 1 weeks at [phone]. It is also a good idea to know your test results and keep a list of the medicines you take. Medications will be prescribed for you at your provider's discretion. These medications are to be used as instructed; if they are taken more often that prescribed they will not be refilled early and in most cases will not be refilled at all. > When a refill is needed, you should contact sandra starr 2-3 business days before your prescription runs out. Medications will NOT be refilled by operator specialist communications providers after hours! > Many pain medications contain Tylenol (Acetaminophen). Do not consume more than 4,000 mg of Tylenol per day in total with any combination of medications. > Pain medications can cause constipation. Please use an over the counter stool softener as directed, while taking pain medications. Consult your local pharmacist with questions or recommendations on stool softeners. If constipation persists, contact our office or your primary care provider. > While under our care, you are not to receive pain medications or other controlled substances from any other provider unless our office is notified and approves. Any attempts to do so will result in refusal to prescribe any further pain medications and possible dismissal from our practice. ? Walking is essential for the healing process after surgery. We would like you to slowly advance your walking. This should be done on relatively flat clear ground (inside or out) or can be done on a treadmill. Remember this goal does not have to happen all at once, slowly increase your distance and duration. This can be broken into more more than one walk per day as tolerated. Patients who walk as directed after surgery rarely require Physical Therapy. In the unlikely event this issue arises your provider will direct hospital staff to make the appropriate arrangements. ? No lifting over 5 pounds {a gallon of milk) or bending/twisting until further notice. Each of these activities places an unnecessary amount of stress onto the body and can impede the delicate healing process. > Instead of bending at the waist, keep your back straight and bend at the knees. > Instead of twisting your torso, keep your back straight and turn your entire body with your feet. ? You may sleep in any position which makes you comfortable. Many patients find comfort sleeping in a reclining chair. It is not abnormal to have difficulty sleeping for the first several weeks following your surgery. We recommend trying Benadry! or Tylenol PM as directed to help with your sleeping difficulties. Both medications are over the counter and available without prescription. ? NO SMOKING!!! Smoking dramatically increases the probability of developing postoperative wound infections. ? Common complaints after lumbar and/or thoracic spine surgery include, but are not limited to: numbness and/or tingling in the legs, pain around the incision and surrounding tissues, muscle spasms, or stiffness of the middle to low back. Contact our office if these symptoms persist or if an acute change occurs. ? No driving for the first 3-5days, and not while taking narcotics until seen at your follow-up appointment and cleared. There are no restrictions for riding on short trips, however if you take a longer trip, arrangements should be made to make regular stops to get out of the vehicle and stretch . ? Swelling is an unfortunate event that will take place with any surgery and is the primary source of your postoperative discomfort. While walking and regular approved activities helps control inflammation, there are additional steps you can take to minimize swelling. > Place ice over the surgical site and surrounding tissue for twenty minutes, followed by applying a low/medium heat (heating pad) for an additional twenty minutes every 1-2 hours as needed for painrelief. > You may use of over the counter anti-inflammatory medications (Ibuprofen, Motrin, Aleve, Advil, etc) as directed on the package label. These types of medicines will significantly reduce the amount of discomfort you experience after surgery from swelling. It should be noted that if you have and allergy to any of these medications, or a history of ulcers or kidney disease you should consult you primary care provider prior to starting these medications. Discharge Attestations Time Spent in Discharge Care*: less than 30 min Quality Metrics Clinical Quality Measures [ No reported AMI, CVA or VTE this stay] Coding Level of Care Code Acute Code for Chg Fwd Diagnoses Status post lumbar spinal fusion Z98.1
== END 2022-09-09 19:26 | disposition home or self-care (01) | DRG 460 ==
LOC: MEDSURG 16:27
PROVIDERS: Anesthesiology; Admitting Provider Orthopaedic Surgery; PCP Registered Nurse; Visit Provider Orthopaedic Surgery
PROC: 0SG107J Fusion of 2 or more Lumbar Vertebral Joints with Autologous Tissue Substitute, Posterior Approach, Anterior Column, Open Approach (ICD-10-PCS; principal; 2022-09-08 09:15)
DX: M51.36 Other intervertebral disc degeneration, lumbar region (principal); M46.1 Sacroiliitis, not elsewhere classified; J44.9 Chronic obstructive pulmonary disease, unspecified; I10 Essential (primary) hypertension; E21.3 Hyperparathyroidism, unspecified; Z98.1 Arthrodesis status
CPT/HCPCS: 51702; 72020; 76000; 85025; 86850; 86900; 97161; 97530; C1713; J0131; J0690; J1100; J1170; J1644; J1885; J2270; J2405; J2704; J3010; J3370; J3490; J7030; J7120; Q0162

== ENCOUNTER 2022-09-13 12:04 | Emergency (ER) | payer MEDICARE, SELFPAY ==
[2022-09-13] VITALS (11 sets, daily range): BP systolic 95–144; BP diastolic 64–90; PULSE 57–124; RESP 18–23; TEMP 36.3; O2SAT 92–99; BMI 29.8
--- NOTE | 2022-09-13 12:29 | ECG_ITS ---
[facility] Test Date: 2022-09-13 Pat Name: Sharla Arciniega Department: Room: Gender: Female [employer]: : [id number] Requested By: Morro Michaels Order Number: [id number] Isidoro MD: Carl Devries M.D. Measurements Intervals Beals Rate: 96 P: 12 WI: 172 QRS: -5 QRSD: 101 T: 52 QT: 414 QTc: 524 Interpretive Statements SINUS RHYTHM WITH FREQUENT SUPRAVENTRICULAR PREMATURE COMPLEXES INFERIOR MYOCARDIAL INFARCTION , PROBABLY OLD [40+ ms Q WAVE AND/OR ST/T ABNORMALITY IN II/aVF] Compared to ECG 09/01/2022 13:45:02 Myocardial infarct finding now present Sinus bradycardia no longer present Sinus arrhythmia no longer present Electronically Signed On 09-13-2022 17:29:38 MEDICAL CODING SPECIALIST by Carl Devries M.D. [id number]
--- NOTE | 2022-09-13 12:30 | XR_ITS ---
WS: [id number] Portable AP upright chest, 09/13/2022 Clinical Data: dyspnea/cough Comparison: None. Findings: No nodules, masses or effusions are seen. The heart is normal. The pulmonary vascularity is not increased. No pneumonia or pneumothorax is seen. The right diaphragm is elevated. The aortic arc h and descending thoracic aorta show tortuosity. There are monitor leads on the chest wall. XR/XR chest 1V portable [id number] Impression: Atherosclerosis.
[2022-09-13 13:04] LABS: Basophils % 0.4 %; Eosinophils # 0.1 10^3/uL (0.0-0.8); Eosinophils % 0.7 %; Hematocrit 35.8 % (37.0-47.0); Hemoglobin 11.8 g/dL (11.5-15.3); Lymphocytes % 11.7 %; Mean Corpuscular Hemoglobin 30.6 pg (28.0-34.0); Mean Platelet Volume 11.7 fL (7.4-10.4); Monocytes % 12.5 %; Neutrophils # 6.18 10^3/uL (1.8-7.7); Neutrophils % 74.2 %; Nucleated Red Blood Cells % 0 %; Platelet Count 283 10^3/cmm (130-400); Red Blood Count 3.85 10^6/uL (4.1-5.3); Red Cell Distribution Width 13.4 % (12.1-15.1); White Blood Count 8.3 10^3/uL (4.0-10.0)
--- NOTE | 2022-09-13 13:23 | CT_ITS ---
WS: [id number] CT CHEST ANGIOGRAPHY WITH REFORMATS HISTORY: tachycardia/dyspnea - S/P back surgery TECHNIQUE: Contiguous axial images are obtained through the chest during arterial injection of intrav enous contrast. Images are reconstructed to evaluate the pulmonary arteries. MIP imaging also reviewe d. All CT scans at [facility] use at least one of these dose optimization techniques: automat ed exposure control; mA and/or kV adjustment per patient size (includes targeted exams where dose is matched to clinical indication); or iterative reconstruction. CONTRAST: Omnipaque 350; 95 mL IV. DLP: 398.61 mGy.cm COMPARISON: None available. Significant motion artifact from patient's breathing obscuring the pulmonary arteries. There is no ce ntral pulmonary embolism. The main pulmonary arteries are well-opacified. The opacification becomes l imited beyond the lobar branches. There is lack of contrast which could be due to thrombus, motion or poor injection. Very limited contrast beyond the lobar branches. There is mild RIGHT heart strain. N o pericardial effusion. Mild cardiomegaly. Mild hazy attenuation throughout both lungs. May be due to poor inspiration and breathing artifact. N o dense consolidation or mass. No mediastinal or hilar adenopathy. No abnormality in the upper abdome n. Mild increase in thoracic kyphosis. CT/CT angio chest PE protcl [id number] IMPRESSION: 1. Suboptimal opacification and evaluation of the pulmonary arteries. 2. Significant breathing motion artifact. 3. No central pulmonary embolism to the main and lobar branches. Beyond the lo bar branches the opacification is suboptimal. 4. No pneumonia. 5. Cardiomegaly. Mild RIGHT heart strain.
[2022-09-13 13:27] LABS: Alanine Aminotransferase 80 U/L (0-33); Albumin Level 3.6 g/dL (3.5-5.2); Alkaline Phosphatase 243 U/L (35-105); Blood Urea Nitrogen 11 mg/dL (8-23); Calcium 10.2 mg/dL (8.5-10.5); Carbon Dioxide 25 mmol/L (22-29); Chloride 100 mmol/L (98-107); Globulin 2.8 g/dL (1.3-4.6); Glucose 125 mg/dL (65-115); Osmolality Calculated 285 mOsm/kg (285-295); Sodium 137 mmol/L (136-145); Total Protein 6.4 g/dL (6.6-8.7)
[2022-09-13 13:33] LABS: Add Urine Microscopic? NO; Charge for UA Resulting for Rev
[2022-09-13 13:37] LABS: Anion Gap 15.5 (5-19); Aspartate Amino Transferase 70 U/L (0-32); Potassium 3.5 mmol/L (3.5-5.1)
--- NOTE | 2022-09-13 13:39 | PC.NURSE ---
PT HAD AN IN AND OUT CATH FOR URINE COLLECTION AND 400 ML OF PALE URINE VOIDED
[2022-09-13 13:48] LABS: Bilirubin Urine Neg (Negative); Blood Urine Neg (Negative); Glucose Urine UA Norm (Normal); Ketones Urine 1+ (Negative); Leukocyte Esterase Urine Negative (Negative); Nitrate Urine Negative (Negative); Protein Urine Neg (Negative); Specific Gravity, Urine 1.015 (1.005-1.030); Sulfosalicylic Acid Urine Negative (Negative); Urine Appearance Clear (CLEAR); Urine Color Yellow (Yellow); Urobilinogen Urine Norm (Negative); pH Urine 9 (5-7)
[2022-09-13] MEDS: iohexol 350 mg/mL 500 mL Btl (per mL) IV ×2 (14:25→18:03)
--- NOTE | 2022-09-13 14:39 | W.ED.GENADLT ---
Documented by User: Morro Urena DO 09/14/22 08:53 HPI - General Adult General: Chief complaint: General Medical Stated complaint: pain all over, Low HR, Post back surgery Time Seen by Provider: 09/13/22 12:24 Source: patient Mode of arrival: ambulatory History of Present Illness: 82-year-old female presents emergency room with complaint of shortness of breath nausea vomiting just generally not feeling well. Patient had a back surgery on September 08 at our facility. Yesterday she began feeling poorly and is progressively worsened. She was mildly tachycardic when she first arrived with blood pressure of 97 systolic her's oxygen saturations were good but she was noticeably tachypneic. She denies any chest or abdominal pain. No fever sweats chills no productive cough. PFSH ED PFSH: Medical History Chronic back pain COPD (chronic obstructive pulmonary disease) DJD (degenerative joint disease) History of cystocele Hypertension Multiple thyroid nodules Pelvic organ prolapse quantification stage 2 cystocele Primary hyperparathyroidism Surgical History H/O: hysterectomy (~03/31/22) 03/31/2022: TVH with left oophorectomy, anterior colporrhaphy, single incision mid urethral sling, posterior colporrhaphy and cystoscopy performed by Dr. Cali at [facility] Hx of cholecystectomy Status post lumbar spinal fusion Family History Mother Diabetes Cancer Sister No problems noted. Family/Other Breast cancer maternal aunt, age onset unknown Denies family history of Colon cancer Ovarian cancer Heart disease Hyperlipidemia Hypertension Uterine cancer Thyroid condition Stroke Social History Smoking and tobacco status: never smoked Physical Exam Const: GENERAL APPEARANCE: cooperative and comfortable ORIENTATION/CONSCIOUSNESS: Yes awake, Yes oriented to person, Yes oriented to place and Yes oriented to time HENMT: COMMON NORMALS: normocephalic, atraumatic and hearing grossly normal bilaterally HEAD & SCALP: normocephalic and atraumatic Resp: COMMON NORMALS: normal respiratory effort, No retractions, No use of accessory muscles and clear to auscultation bilaterally AUSCULTATION: clear to auscultation bilaterally Cardio: COMMON NORMALS: regular rate, regular rhythm and No murmurs present (Cardio) RATE: regular rate RHYTHM: regular rhythm GI: COMMON NORMALS: Soft to palpation and No hepatosplenomegaly present AUSCULTATION: Yes normoactive bowel sounds PALPATION: Yes Soft to palpation, No Tenderness to palpation present (GI), No Guarding due to palpation present (GI) and Yes No hepatosplenomegaly present Extremity: COMMON NORMALS: normal to inspection, capillary refill normal, no clubbing, cyanosis or edema, no calf tenderness and no pedal edema Neuro: SENSORIUM/ORIENTATION: Yes oriented to person, Yes oriented to place and Yes oriented to time Skin: COMMON NORMALS: no rashes or lesions noted GENERAL SKIN EXAM: no rashes or lesions noted Course Vital Signs: Vital signs: Vital Signs Temperature 97.3 F L 09/13/22 12:12 Pulse Rate 76 09/13/22 18:30 Respiratory Rate 23 H 09/13/22 18:41 Blood Pressure 120/86 09/13/22 18:30 Pulse Oximetry 92 09/13/22 18:41 Oxygen Delivery Me thod 09/13/22 13:41 MDM - General Adult Medical Decision Making Patient mildly tachypneic does not appear to be fluid overloaded. She is also tachycardic on arrival. Because of her recent surgery and immobilization and mild calf tenderness venous duplex is done as well as a CTA. Dr. Rodriguez read the CTA felt there was significant right heart strain is also seem to correlate with elevations of her transaminases with no abdominal pain. However there was poor penetration of the dye on the CTA and there were only able to establish that there is no central PEs. Still concerned about potential peripheral PEs with enough low to cause right heart strain discussed Dr. Rodriguez she recommended repeating the CTA. Time change of shift CTA is pending. Troponin and BNP have been added initial EKG did not show significant abnormalities no acute ST changes. Care signed out to Dr. Monroy at change of shift. See final notes for diagnosis and disposition. Patient presents here low back pain likely from her surgery her pain is now resolved her repeat CT angio was normal she does have slightly elevated BNP I did offer her admission she states she feels improved would like to go home I informed her she does need to follow-up with her PCP we will give her low-dose of Lasix for home and did inform her she is to follow-up with her PCP and have an echo outpatient she has any worsening symptoms she is to return she understands agrees to plan. Medical Records I reviewed the patient's medical records. Lab Data I reviewed the patient's lab results. 09/13/22 12:52 09/13/22 12:52 Radiology Impressions Chest X-Ray 09/13/22 12:30 Impression: Atherosclerosis. Venous Duplex 09/13/22 16:16 IMPRESSION: No evidence of deep vein thrombosis. Chest CTA 09/13/22 17:06 IMPRESSION: No evidence of pulmonary embolism. REFERENCES: Shannan Mariee, et al. Guidelines for Management of Incidental Pulmonary Nodules Detected on CT Images: From the Fleischner Society 2017. Radiology. 2017;284(1):228-243. Laboratory Results WBC 8.3 10^3/uL (4.0-10.0) 09/13/22 12:52 RBC 3.85 10^6/uL (4.1-5.3) L 09/13/22 12:52 Hgb 11.8 g/dL (11.5-15.3) 09/13/22 12:52 Hct 35.8 % (37.0-47.0) L 09/13/22 12:52 MCV 93.0 fl (81-99) 09/13/22 12:52 MCH 30.6 pg (28.0-34.0) 09/13/22 12:52 MCHC 33.0 g/dL (30.0-36.0) 09/13/22 12:52 RDW 13.4 % (12.1-15.1) 09/13/22 12:52 Plt Count 283 10^3/cmm (130-400) 09/13/22 12:52 MPV 11.7 fL (7.4-10.4) H 09/13/22 12:52 Neut % (Auto) 74.2 % 09/13/22 12:52 Lymph % (Auto) 11.7 % 09/13/22 12:52 [place] % (Auto) 12.5 % 09/13/22 12:52 Eos % (Auto) 0.7 % 09/13/22 12:52 Baso % (Auto) 0.4 % 09/13/22 12:52 Neut # (Auto) 6.18 10^3/uL (1.8-7.7) 09/13/22 12:52 Lymph # (Auto) 1.0 10^3/uL (0.8-4.8) 09/13/22 12:52 [place] # (Auto) 1.0 10^3/uL (0.2-0.9) H 09/13/22 12:52 Eos # (Auto) 0.1 10^3/uL (0.0-0.8) 09/13/22 12:52 Baso # (Auto) 0.0 10^3/uL (0.0-0.1) 09/13/22 12:52 Nucleated RBC % (auto) 0 % 09/13/22 12:52 Nucleated RBCs # 0.0 /100WBC 09/13/22 12:52 Sodium 137 mmol/L (136-145) 09/13/22 12:52 Potassium 3.5 mmol/L (3.5-5.1) 09/13/22 12:52 Chloride 100 mmol/L (98-107) 09/13/22 12:52 Carbon Dioxide 25 mmol/L (22-29) 09/13/22 12:52 Anion Gap 15.5 (5-19) 09/13/22 12:52 BUN 11 mg/dL (8-23) 09/13/22 12:52 Creatinine 0.8 mg/dL (0.5-0.9) 09/13/22 12:52 GFR Calculation Not Reportable 09/13/22 12:52 Glucose 125 mg/dL (65-115) H 09/13/22 12:52 Calculated Osmolality 285 mOsm/kg (285-295) 09/13/22 12:52 Calcium 10.2 mg/dL (8.5-10.5) 09/13/22 12:52 Total Bilirubin 1.0 mg/dL (0.15-1.2) 09/13/22 12:52 AST 70 U/L (0-32) H 09/13/22 12:52 ALT 80 U/L (0-33) H 09/13/22 12:52 Alkaline Phosphatase 243 U/L (35-105) H 09/13/22 12:52 Troponin T Baseline 18 ng/L (0-10) H 09/13/22 12:52 NT-Pro-B Natriuret Pep 3619 pg/mL (0-450) H 09/13/22 12:52 Total Protein 6.4 g/dL (6.6-8.7) L 09/13/22 12:52 Albumin 3.6 g/dL (3.5-5.2) 09/13/22 12:52 Globulin 2.8 g/dL (1.3-4.6) 09/13/22 12:52 Urine Color Yellow (Yellow) 09/13/22 13:29 Urine Appearance Clear (CLEAR) 09/13/22 13:29 Urine pH 9 (5-7) H 09/13/22 13:29 Ur Specific [place] 1.015 (1.005-1.030) 09/13/22 13:29 Urine Protein Neg (Negative) 09/13/22 13:29 Urine Glucose (UA) Norm (Normal) 09/13/22 13:29 Urine Ketones 1+ (Negative) H 09/13/22 13:29 Urine Blood Neg (Negative) 09/13/22 13:29 Urine Nitrate Negative (Negative) 09/13/22 13:29 Urine Bilirubin Neg (Negative) 09/13/22 13:29 Prot Sulfosalicylic Acd Negative (Negative) 09/13/22 13:29 Urine Urobilinogen Norm mg/dL (Negative) 09/13/22 13:29 Ur Leukocyte Esterase Negative (Negative) 09/13/22 13:29 Discharge Plan Discharge Patient Disposition: Home Clinical Impression: Low back pain, Elevated brain natriuretic peptide (BNP) level Condition: Stable Prescriptions: New Lasix 40 mg tablet 20 mg PO DAILY Qty: 30 0RF No Action spironolactone 25 mg tablet 25 mg PO DAILY Flovent Diskus 250 mcg/actuation blister with device 1 inh INHALATION DAILY azelastine 137 mcg (0.1 %) aerosol,spray 1 spray INTRANASAL BID PRN (Reason: Allergy Symptoms) Rx Instructions: administer into each nostril bisoprolol fumarate 10 mg tablet 10 mg PO DAILY cholecalciferol (vitamin D3) 1,200 mg PO DAILY naproxen sodium [Flanax (naproxen)] 220 mg tablet 220 mg PO BID PRN (Reason: Pain) Hold Instructions: Resume on 10/07/22. nitroglycerin [Nitrostat] 0.4 mg tablet, sublingual 0.4 mg sublingual Q5M PRN (Reason: chest pain) Qty: 25 3RF Rx Instructions: do not exceed 3 doses per episode (DME) Bone Growth Stimulator E0748 See Rx Instructions .Route .MEDSUPPLY Qty: 1 0RF Rx Instructions: As directed (DME) Intraoperative Neuromonitoring See Rx Instructions .Route .MEDSUPPLY Qty: 1 0RF Rx Instructions: As directed hydrocodone-acetaminophen 5-325 mg tablet 1 - 2 tab PO .Q4-6H Qty: 40 0RF B Complex Capsule 1 cap PO DAILY Discharge Orders: Discharge ED (Routine); Ordered 09/13/22 Ordered By: Mayra Monroy Referrals: Hali Horne [Primary Care Provider] - 1-3 days Discharge Diet: Advance as tolerated Discharge Activity: Resume usual activity Patient Instructions: Back Pain (ED) Activity Restrictions/Additional Instructions: follow up with pcp and need outpt echo Coding Level of Care Code ED Mcat Instructor for Chg Fwd Documented by User: Mayra Monroy MD 09/13/22 19:56 HPI - General Adult General: Chief complaint: General Medical Stated complaint: pain all over, Low HR, Post back surgery Time Seen by Provider: 09/13/22 12:24 PFSH ED PFSH: Medical History Chronic back pain COPD (chronic obstructive pulmonary disease) DJD (degenerative joint disease) History of cystocele Hypertension Multiple thyroid nodules Pelvic organ prolapse quantification stage 2 cystocele Primary hyperparathyroidism Surgical History H/O: hysterectomy (~03/31/22) 03/31/2022: TVH with left oophorectomy, anterior colporrhaphy, single incision mid urethral sling, posterior colporrhaphy and cystoscopy performed by Dr. Cali at [facility] Hx of cholecystectomy Status post lumbar spinal fusion Family History Mother Diabetes Cancer Sister No problems noted. Family/Other Breast cancer maternal aunt, age onset unknown Denies family history of Colon cancer Ovarian cancer Heart disease Hyperlipidemia Hypertension Uterine cancer Thyroid condition Stroke Social History Smoking and tobacco status: never smoked Course Vital Signs: Vital signs: Vital Signs Temperature 97.3 F L 09/13/22 12:12 Pulse Rate 76 09/13/22 18:30 Respiratory Rate 23 H 09/13/22 18:41 Blood Pressure 120/86 09/13/22 18:30 Pulse Oximetry 92 09/13/22 18:41 Oxygen Delivery Me thod 09/13/22 13:41 MDM - General Adult Medical Decision Making Patient presents here low back pain likely from her surgery her pain is now resolved her repeat CT angio was normal she does have slightly elevated BNP I did offer her admission she states she feels improved would like to go home I informed her she does need to follow-up with her PCP we will give her low-dose of Lasix for home and did inform her she is to follow-up with her PCP and have an echo outpatient she has any worsening symptoms she is to return she understands agrees to plan. Lab Data 09/13/22 12:52 09/13/22 12:52 Radiology Impressions Chest X-Ray 09/13/22 12:30 Impression: Atherosclerosis. Venous Duplex 09/13/22 16:16 IMPRESSION: No evidence of deep vein thrombosis. Chest CTA 09/13/22 17:06 IMPRESSION: No evidence of pulmonary embolism. REFERENCES: Shannan Mariee, et al. Guidelines for Management of Incidental Pulmonary Nodules Detected on CT Images: From the Fleischner Society 2017. Radiology. 2017;284(1):228-243. Laboratory Results WBC 8.3 10^3/uL (4.0-10.0) 09/13/22 12:52 RBC 3.85 10^6/uL (4.1-5.3) L 09/13/22 12:52 Hgb 11.8 g/dL (11.5-15.3) 09/13/22 12:52 Hct 35.8 % (37.0-47.0) L 09/13/22 12:52 MCV 93.0 fl (81-99) 09/13/22 12:52 MCH 30.6 pg (28.0-34.0) 09/13/22 12:52 MCHC 33.0 g/dL (30.0-36.0) 09/13/22 12:52 RDW 13.4 % (12.1-15.1) 09/13/22 12:52 Plt Count 283 10^3/cmm (130-400) 09/13/22 12:52 MPV 11.7 fL (7.4-10.4) H 09/13/22 12:52 Neut % (Auto) 74.2 % 09/13/22 12:52 Lymph % (Auto) 11.7 % 09/13/22 12:52 [place] % (Auto) 12.5 % 09/13/22 12:52 Eos % (Auto) 0.7 % 09/13/22 12:52 Baso % (Auto) 0.4 % 09/13/22 12:52 Neut # (Auto) 6.18 10^3/uL (1.8-7.7) 09/13/22 12:52 Lymph # (Auto) 1.0 10^3/uL (0.8-4.8) 09/13/22 12:52 [place] # (Auto) 1.0 10^3/uL (0.2-0.9) H 09/13/22 12:52 Eos # (Auto) 0.1 10^3/uL (0.0-0.8) 09/13/22 12:52 Baso # (Auto) 0.0 10^3/uL (0.0-0.1) 09/13/22 12:52 Nucleated RBC % (auto) 0 % 09/13/22 12:52 Nucleated RBCs # 0.0 /100WBC 09/13/22 12:52 Sodium 137 mmol/L (136-145) 09/13/22 12:52 Potassium 3.5 mmol/L (3.5-5.1) 09/13/22 12:52 Chloride 100 mmol/L (98-107) 09/13/22 12:52 Carbon Dioxide 25 mmol/L (22-29) 09/13/22 12:52 Anion Gap 15.5 (5-19) 09/13/22 12:52 BUN 11 mg/dL (8-23) 09/13/22 12:52 Creatinine 0.8 mg/dL (0.5-0.9) 09/13/22 12:52 GFR Calculation Not Reportable 09/13/22 12:52 Glucose 125 mg/dL (65-115) H 09/13/22 12:52 Calculated Osmolality 285 mOsm/kg (285-295) 09/13/22 12:52 Calcium 10.2 mg/dL (8.5-10.5) 09/13/22 12:52 Total Bilirubin 1.0 mg/dL (0.15-1.2) 09/13/22 12:52 AST 70 U/L (0-32) H 09/13/22 12:52 ALT 80 U/L (0-33) H 09/13/22 12:52 Alkaline Phosphatase 243 U/L (35-105) H 09/13/22 12:52 Troponin T Baseline 18 ng/L (0-10) H 09/13/22 12:52 NT-Pro-B Natriuret Pep 3619 pg/mL (0-450) H 09/13/22 12:52 Total Protein 6.4 g/dL (6.6-8.7) L 09/13/22 12:52 Albumin 3.6 g/dL (3.5-5.2) 09/13/22 12:52 Globulin 2.8 g/dL (1.3-4.6) 09/13/22 12:52 Urine Color Yellow (Yellow) 09/13/22 13:29 Urine Appearance Clear (CLEAR) 09/13/22 13:29 Urine pH 9 (5-7) H 09/13/22 13:29 Ur Specific [place] 1.015 (1.005-1.030) 09/13/22 13:29 Urine Protein Neg (Negative) 09/13/22 13:29 Urine Glucose (UA) Norm (Normal) 09/13/22 13:29 Urine Ketones 1+ (Negative) H 09/13/22 13:29 Urine Blood Neg (Negative) 09/13/22 13:29 Urine Nitrate Negative (Negative) 09/13/22 13:29 Urine Bilirubin Neg (Negative) 09/13/22 13:29 Prot Sulfosalicylic Acd Negative (Negative) 09/13/22 13:29 Urine Urobilinogen Norm mg/dL (Negative) 09/13/22 13:29 Ur Leukocyte Esterase Negative (Negative) 09/13/22 13:29 Discharge Plan Discharge Patient Disposition: Home Clinical Impression: Low back pain, Elevated brain natriuretic peptide (BNP) level Condition: Stable Prescriptions: New Lasix 40 mg tablet 20 mg PO DAILY Qty: 30 0RF No Action spironolactone 25 mg tablet 25 mg PO DAILY Flovent Diskus 250 mcg/actuation blister with device 1 inh INHALATION DAILY azelastine 137 mcg (0.1 %) aerosol,spray 1 spray INTRANASAL BID PRN (Reason: Allergy Symptoms) Rx Instructions: administer into each nostril bisoprolol fumarate 10 mg tablet 10 mg PO DAILY cholecalciferol (vitamin D3) 1,200 mg PO DAILY naproxen sodium [Flanax (naproxen)] 220 mg tablet 220 mg PO BID PRN (Reason: Pain) Hold Instructions: Resume on 10/07/22. nitroglycerin [Nitrostat] 0.4 mg tablet, sublingual 0.4 mg sublingual Q5M PRN (Reason: chest pain) Qty: 25 3RF Rx Instructions: do not exceed 3 doses per episode (DME) Bone Growth Stimulator E0748 See Rx Instructions .Route .MEDSUPPLY Qty: 1 0RF Rx Instructions: As directed (DME) Intraoperative Neuromonitoring See Rx Instructions .Route .MEDSUPPLY Qty: 1 0RF Rx Instructions: As directed hydrocodone-acetaminophen 5-325 mg tablet 1 - 2 tab PO .Q4-6H Qty: 40 0RF B Complex Capsule 1 cap PO DAILY Discharge Orders: Discharge ED (Routine); Ordered 09/13/22 Ordered By: Mayra Monroy Referrals: Hali Horne [Primary Care Provider] - 1-3 days Discharge Diet: Advance as tolerated Discharge Activity: Resume usual activity Patient Instructions: Back Pain (ED) Activity Restrictions/Additional Instructions: follow up with pcp and need outpt echo Coding Level of Care Code ED Mcat Instructor for Aline Rojas
--- NOTE | 2022-09-13 15:19 | PC.NURSE ---
PT MOVED TO BEDSIDE COMMODE FOR BM. WHEN UP A REDNESS WAS NOTED ON HER SACRUM DR. BERRY WAS NOTIFIED NO FURTHER ORDERS AT THIS TIME.
[2022-09-13] MEDS: morphine 4 mg/mL SDV 1 mL IVP (15:32)
--- NOTE | 2022-09-13 16:16 | USR_ITS ---
PROCEDURE INFORMATION: Exam: US Duplex Lower Extremity Veins, Bilateral Exam date and time: 09/13/2022 4:40 PM Age: 82 years old Clinical indication: Edema, localized; Lower extremity, bilateral; Patient HX: Sacrum SX recently; Additional info: Post op leg swelling TECHNIQUE: Imaging protocol: Real-time duplex ultrasound of the bilateral extremities with 2-D rivera scale, color Doppler flow and spectral waveform analysis including responses to compression and other maneuvers (when performed) with image documentation. Complete exam focused on the lower extremity veins. COMPARISON: US pelvic limited [id number] 04/29/2022 10:58 AM FINDINGS: Right deep veins: Unremarkable. The common femoral, femoral, proximal profunda femoral and popliteal veins are patent without thrombus. Normal Doppler waveforms. Normal compressibility and/or augmentation response. Right superficial veins: Saphenofemoral junction is patent without thrombus. Left deep veins: Unremarkable. The common femoral, femoral, proximal profunda femoral and popliteal veins are patent without thrombus. Normal Doppler waveforms. Normal compressibility and/or augmentation response. Left superficial veins: Saphenofemoral junction is patent without thrombus. Soft tissues: Unremarkable. US/[place] [id number] IMPRESSION: No evidence of deep vein thrombosis.
--- NOTE | 2022-09-13 17:06 | CTR_ITS ---
PROCEDURE INFORMATION: Exam: CTA Chest With Contrast Exam date and time: 09/13/2022 5:58 PM Age: 82 years old Clinical indication: Dyspnea TECHNIQUE: Imaging protocol: Computed tomographic angiography of the chest with contrast. 3D rendering (Not supervised by radiologist): MIP and/or 3D reconstructed images were created by the technologist. Radiation optimization: All CT scans at this facility use at least one of these dose optimization techniques: automated exposure control; mA and/or kV adjustment per patient size (includes targeted exams where dose is matched to clinical indication); or iterative reconstruction. Contrast material: OMNIPAQUE 350; Contrast volume: 100 ml; Contrast route: INTRAVENOUS (IV); REPORTING DATA: Count of CT and Cardiac NM exams in prior 12 months: This patient has received 2 known CTs and 0 known cardiac nuclear medicine studies in the 12 months prior to the current study. COMPARISON: CT angio chest PE protcl [id number] 09/13/2022 2:22 PM RADIATION DOSE METRICS: Total DLP (mGy-cm): 412.81 FINDINGS: Pulmonary arteries: There is no evidence of filling defects within the pulmonary arterial circulation to suggest pulmonary embolism. Aorta: There is no thoracic aortic aneurysm or dissection. Lungs: There are numerous scattered peripheral subpleural pulmonary nodules measuring less than 5 mm, likely related to old infectious or inflammatory disease. For patients at low risk (minimal or absent history of smoking and of other known risk factors), no routine follow-up is indicated. For patients at high risk (history of smoking or of other known risk factors), consider optional CT Chest at 12 months. (Reference: Shannan) Pleural spaces: Unremarkable. No pneumothorax. No pleural effusion. Heart: Unremarkable. No cardiomegaly. No pericardial effusion. Mediastinal space: There is mild thickening of the distal esophagus. Lymph nodes: Unremarkable. No enlarged lymph nodes. Bones/joints: Unremarkable. No acute fracture. Soft tissues: Unremarkable. CT/CT angio chest PE protcl [id number] IMPRESSION: No evidence of pulmonary embolism. REFERENCES: Shannan Mariee et al. Guidelines for Management of Incidental Pulmonary Nodules Detected on CT Images: From the Fleischner Society 2017. Radiology. 2017;284(1):228-243.
--- NOTE | 2022-09-13 18:05 | ECG_ITS ---
[facility] Test Date: 2022-09-13 Pat Name: Sharla Arciniega Department: Room: Gender: Female Associate Account Manager: : 1940 Requested By: Morro Michaels Order Number: [id number] Isidoro MD: Carl Devries M.D. Measurements Intervals Mcdonald Rate: 70 P: 78 GA: 176 QRS: 23 QRSD: 98 T: 99 QT: 379 QTc: 411 Interpretive Statements SINUS RHYTHM WITH MARKED SINUS ARRHYTHMIA MODERATE T-WAVE ABNORMALITY, CONSIDER LATERAL ISCHEMIA [-0.1+ mV T-WAVE IN I/aVL/V5/V6] Compared to ECG 09/13/2022 12:45:17 T-wave abnormality now present Possible ischemia now present Myocardial infarct finding no longer present Electronically Signed On 09-13-2022 23:42:23 WARM IN WORKER by Carl Devries M.D. [email or web address]
[2022-09-13 18:25] LABS: Troponin(5th) Baseline 18 ng/L (0-10)
[2022-09-13 18:36] LABS: NT Pro B Type Natriuretic Pept 3619 pg/mL (0-450)
[2022-09-13] MEDS: HYDROmorphone 1 mg/mL INJ 1 mL 0.5 MG IVP (18:41)
--- NOTE | 2022-09-13 19:00 | PC.NURSE ---
Report from DUSTIN Bodlen. Pt resting quietly. No needs at this time.
[2022-09-13] MEDS: FUROsemide 10 mg/mL SDV 4mL 40 MG IVP (19:26)
== END 2022-09-13 19:41 | disposition home or self-care (01) ==
PROVIDERS: Family Medicine; Emergency Provider Emergency Medicine; PCP Registered Nurse
DX: M54.50 Low back pain, unspecified (principal); R79.89 Other specified abnormal findings of blood chemistry; J44.9 Chronic obstructive pulmonary disease, unspecified; I10 Essential (primary) hypertension
CPT/HCPCS: 71045; 71275; 80053; 81003; 83880; 84484; 85025; 93005; 93970; 96374; 96375; 99285; J1170; J1940; J2270; Q9967

== ENCOUNTER → 2022-09-16 08:40 | Outpatient (BNVA) | payer MEDICARE, SELFPAY | PROVIDERS: PCP Registered Nurse; Visit Provider Orthopaedic Surgery | DX: Z47.89 Encounter for other orthopedic aftercare (principal); Z98.1 Arthrodesis status | CPT/HCPCS: 99024 ==

== ENCOUNTER → 2022-09-23 08:50 | Outpatient (BNVA) | payer MEDICARE, SELFPAY | PROVIDERS: PCP Registered Nurse; Visit Provider Physician Assistant | DX: Z98.1 Arthrodesis status (principal) | CPT/HCPCS: 72100; 99024 ==

== ENCOUNTER → 2022-10-21 09:04 | Outpatient (BNVA) | payer MEDICARE, SELFPAY | PROVIDERS: PCP Registered Nurse; Visit Provider Physician Assistant | DX: Z98.1 Arthrodesis status (principal) | CPT/HCPCS: 72100; 99024 ==

== ENCOUNTER 2022-10-22 11:35 | Outpatient (CLI) | payer MEDICARE, SELFPAY ==
--- NOTE | 2022-10-22 11:49 | USCV_ITS ---
Sharla Arciniega Age: 82 Gender: F : 1940 Exam Date: 10/22/2022 12:03 Ordering Phys: Hali Horne Technologist: Exam [place] [facility] [place]ication: CHEST PAIN BP: 113 / 72 HR: 65 Rhythm: Sinus Technical Quality: Adequate MEASUREMENTS (Male / Female) Normal Values 2D ECHO LV Diastolic Diameter PLAX 4.3 cm 4.2 - 5.9 / 3.9 - 5.3 cm LV Systolic Diameter PLAX 2.4 cm IVS Diastolic Thickness 1.5 cm 0.6 - 1.0 / 0.6 - 0.9 cm IVS Systolic Thickness 1.8 cm LVPW Diastolic Thickness 1.3 cm 0.6 - 1.0 / 0.6 - 0.9 cm LVPW Systolic Thickness 1.8 cm LVOT Diameter 2.0 cm LV Ejection Fraction 2D Teich 76.5 % LV Ejection Fraction MOD 2C 77.7 % LV Ejection Fraction 2C AL 77.7 % LA Diameter 3.5 cm Aorta at Sinotubular Diameter 2.8 cm M-MODE Aortic Annulus Diameter 3.6 cm LA Ao Ratio MM 1.1 MV E Point Septal Separation 0.7 cm DOPPLER AV Peak Velocity 152.0 cm/s LVOT Peak Velocity 91.0 cm/s AV Area Cont Eq vti 2.2 cm squared AV Area Cont Eq pk 1.9 cm squared MV Area PHT 4.6 cm squared Mitral E to A Ratio 0.9 MV E' Velocity 51.0 cm/s Mitral E to MV E' Ratio 10.7 Mitral E to LV E' Lateral Ratio 11.9 Mitral E to LV E' Septal Ratio 9.8 TR Peak Velocity 223.7 cm/s TR Peak Gradient 20.0 mmHg TR Mean Velocity 125.3 cm/s TR Mean Gradient 10.3 mmHg TR Velocity Time Integral 56.9 cm TV Peak E Velocity 77.0 cm/s Right Atrial Pressure 3.0 mmHg Pulmonary Artery Systolic Pressu 23.0 mmHg RV Acceleration Time 0.1 s FINDINGS Left Ventricle Left ventricle is normal in size. LV systolic function is normal with EF 55 to 60%. No regional wall motion abnormalities are seen. Grade 1 diastolic dysfunction Right Ventricle Normal in size and function Right Atrium Normal in size Left Atrium Normal in size Mitral Valve Structurally normal mitral valve. Mild mitral regurgitation. Aortic Valve Structurally normal aortic valve. No significant aortic stenosis. Mild aortic regurgitation. Tricuspid Valve Mild tricuspid regurgitation. RVSP is 40 to 45 mmHg. This is consistent with mild pulmonary hypertension. Pulmonic Valve Not well-visualized. Trace pulmonic regurgitation. Pericardium Normal Aorta Normal in size IVC Appears to be normal CONCLUSIONS LV systolic function is normal with EF 55 to 60%. Grade 1 diastolic dysfunction. Mild mitral regurgitation. Mild aortic regurgitation. Mild tricuspid regurgitation. Trace pulmonic regurgitation. Mild pulmonary hypertension. No comparison studies are available Carl Devries MD (Electronically Signed) Final Date: 22 October 2022 22:29 S
== END 2022-10-22 11:36 | disposition home or self-care (01) ==
PROVIDERS: PCP Registered Nurse; Visit Provider Registered Nurse
DX: R07.9 Chest pain, unspecified (principal); I08.3 Combined rheumatic disorders of mitral, aortic and tricuspid valves
CPT/HCPCS: 93306

== ENCOUNTER → 2022-12-16 09:36 | Outpatient (BNVA) | payer MEDICARE, SELFPAY | PROVIDERS: PCP Registered Nurse; Visit Provider Physician Assistant | DX: Z98.1 Arthrodesis status (principal) | CPT/HCPCS: 72100; 99024 ==

== ENCOUNTER 2023-02-24 10:29 | Outpatient (CLI) | payer MEDICARE, SELFPAY ==
--- NOTE | 2023-02-24 10:37 | MM_ITS ---
WS: [id number] BILATERAL SCREENING DIGITAL TOMOSYNTHESIS MAMMOGRAM WITH CAD HISTORY: SCREENING COMPARISON: 12/04/2021 and 06/16/2020 Bilateral CC and MLO views with tomosynthesis and synthetic mammography submitted. Computer aided det ection analyzed. Breast composition: There are scattered areas of fibroglandular density. No suspicious masses, microc alcifications or architectural distortion. Stable 8 mm mass in the central left breast. IMPRESSION: MM/[place] [id number] BI-RADS: 2-Benign FOLLOW UP: 1 Year Follow-up
== END 2023-02-24 10:30 | disposition home or self-care (01) ==
PROVIDERS: PCP Registered Nurse; Visit Provider Registered Nurse
DX: Z12.31 Encounter for screening mammogram for malignant neoplasm of breast (principal)
CPT/HCPCS: 72100; 77063; 77067; 99024; 99212

== ENCOUNTER → 2023-06-07 10:46 | Outpatient (BNVA) | payer MEDICARE, SELFPAY | PROVIDERS: PCP Registered Nurse; Visit Provider Orthopaedic Surgery | DX: Z98.1 Arthrodesis status (principal); T84.216A Breakdown (mechanical) of internal fixation device of vertebrae, initial encounter; Y79.2 Prosthetic and other implants, materials and accessory orthopedic devices associated with adverse incidents | CPT/HCPCS: 72100; 99213 ==

== ENCOUNTER → 2023-12-06 10:33 | Outpatient (BNVA) | payer MEDICARE, SELFPAY | PROVIDERS: PCP Registered Nurse; Visit Provider Orthopaedic Surgery | DX: Z98.1 Arthrodesis status (principal); M54.50 Low back pain, unspecified; G89.29 Other chronic pain | CPT/HCPCS: 72100; 99213 ==

== ENCOUNTER 2024-03-21 09:20 | Outpatient (CLI) | payer MEDICARE, SELFPAY ==
--- NOTE | 2024-03-21 09:20 | MM_ITS ---
WS: [id number] BILATERAL SCREENING DIGITAL TOMOSYNTHESIS MAMMOGRAM WITH CAD HISTORY: SCREENING COMPARISON: 12/04/2021, 06/16/2020, 02/24/2023 Bilateral CC and MLO views with tomosynthesis and synthetic mammography submitted. Computer aided det ection analyzed. Breast composition: There are scattered areas of fibroglandular density. No suspicious masses, microc alcifications or architectural distortion. Long-term stability of an ovoid mass central LEFT breast n ear 12:00. Benign calcifications in each breast. MM/[place] [id number] IMPRESSION: BI-RADS: 2 - Benign. FOLLOW UP: 1 Year Follow-up
== END 2024-03-21 09:21 | disposition home or self-care (01) ==
LOC: MOBLMAM 09:32
PROVIDERS: PCP Registered Nurse; Visit Provider Registered Nurse
DX: Z12.31 Encounter for screening mammogram for malignant neoplasm of breast (principal); R92.323 Mammographic fibroglandular density, bilateral breasts; N63.22 Unspecified lump in the left breast, upper inner quadrant; R92.1 Mammographic calcification found on diagnostic imaging of breast
CPT/HCPCS: 77063; 77067

== ENCOUNTER 2025-04-18 11:08 | Outpatient (CLI) | payer MEDICARE, SELFPAY ==
--- NOTE | 2025-04-18 11:20 | MM_ITS ---
WS: [id number] BILATERAL 3D TOMOSYNTHESIS DIGITAL SCREENING MAMMOGRAPHY WITH CAD CLINICAL INFORMATION: SCREENING HISTORY: Screening mammogram. No current complaints. COMPARISON: 2023 TECHNIQUE: Bilateral CC and MLO views. FINDINGS: Scattered fibroglandular densities bilaterally. No suspicious focal mass, asymmetry, calcifications, or architectural distortion. No evidence of malignancy. Vascular calcification. A few incidental punctate calcifications. Stable ovoid nodule central LEFT breast. MM/MM scr tomosynthesis [id number] IMPRESSION: DENSITY: There are scattered areas of fibroglandular density. BI-RADS: 2 - Benign. FOLLOW UP: 1 Year Follow-up Recommend return to annual screening mammography.
== END 2025-04-18 11:09 | disposition home or self-care (01) ==
LOC: RAD 11:09
PROVIDERS: PCP Registered Nurse; Visit Provider Registered Nurse
DX: Z12.31 Encounter for screening mammogram for malignant neoplasm of breast (principal); R92.323 Mammographic fibroglandular density, bilateral breasts; R92.1 Mammographic calcification found on diagnostic imaging of breast; N63.20 Unspecified lump in the left breast, unspecified quadrant
CPT/HCPCS: 77063; 77067